=== PATIENT | male | born 1965 | race Caucasian/White ===

== ENCOUNTER → 2019-11-13 | Outpatient (CLI) | payer OTHER ==
--- NOTE | 2019-11-13 15:56 | US ---
EXAMINATION TYPE: US thyroid st tissue head/neck DATE OF EXAM: 11/13/2019 COMPARISON: NONE CLINICAL HISTORY: R22.1 localized swelling, mass and lump, neck. Pt states palpable lump right latera l neck extending to midline of neck/ Pt denies pain In area of pt's palpable midline/right lateral neck shows a solid, isoechoic area= 2.5 x 1.0 x 6.6 cm/ No blood flow withing ?lipoma IMPRESSION: I subtle slightly hypoechoic structure within the neck of the palpable abnormality may be a lipoma. R ecommend CT with contrast for additional evaluation.
== END | disposition home or self-care (01) ==
LOC: RADUSWWP 15:29
PROVIDERS: ATTEND Family Medicine
DX: R22.1 Localized swelling, mass and lump, neck (principal)
CPT/HCPCS: 76536

== ENCOUNTER → 2019-12-09 | Outpatient (CLI) | payer OTHER ==
--- NOTE | 2019-12-10 09:17 | CT ---
EXAMINATION TYPE: CT soft tissue neck w con DATE OF EXAM: 12/09/2019 COMPARISON: None HISTORY: Neck lump CT DLP: 570.3 mGycm CONTRAST: Patient injected with 100 mL of Isovue 300. TECHNIQUE: Axial images at 3 mm thick sections. Reconstructed images in the coronal plane and sagitt al plane are reviewed. FINDINGS: Limited CT sections are obtained the lung apices. The lung apices appear clear. CT neck: The torus tubarius and fossa of Rosenmuller are normal. 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 Para nasal sinuses and mastoid air cells are clear. Parotid glands appear normal and symmetrical. Submandibular glands, are normal. Parapharyngeal spac es are normal. No suspicious adenopathy is evident. The hypopharynx appears within normal limits. Vocal cord level appear symmetrical. Thyroid as visualized is normal. Osseous structures are normal. IMPRESSIONS: 1. Normal soft tissue neck.
== END | disposition home or self-care (01) ==
LOC: RADCTMAIN 16:54
PROVIDERS: ATTEND Family Medicine
DX: R22.1 Localized swelling, mass and lump, neck (principal)
CPT/HCPCS: 70491; Q9967

== ENCOUNTER 2021-03-08 08:44 | Inpatient (IN) | payer OTHER ==
[2021-03-08] MEDS ORDERED: NITROGLYCERIN SL TABS 0.4 MG TAB SUBLINGUAL STA (09:06)
[2021-03-08] MEDS ORDERED: ASPIRIN 81 MG PO STA (09:06)
--- NOTE | 2021-03-08 09:22 | ED ---
General Adult HPI - General Chief complaint: Chest Pain Stated complaint: chest pain Time Seen by Provider: 03/08/21 09:00 Source: patient, RN notes reviewed, old records reviewed Mode of arrival: wheelchair Limitations: no limitations - History of Present Illness Initial comments: This is a 55-year-old male who presents emergency Department complaining of chest pain. Patient states it started a little bit last night but today at 7:30 at work it got severe. Patient states is from the bottom of his chest bilaterally although we have to his neck. Patient states also is in his back. Patient denies any short of breath patient denies any diaphoretic episodes patient denies any nausea. Patient states his only risk factor is high blood pressure. Patient denies diabetes high cholesterol or family history. Patient denies smoking. Patient denies any recent fever chills or cough per patient denies abdominal pain. Patient denies any headache patient denies numbness or weakness. - Related Data Allergies Allergy/AdvReac Type Severity Reaction Status Date / Time No Known Allergies Allergy Verified 03/08/21 08:54 Review of Systems ROS Statement: Those systems with pertinent positive or pertinent negative responses have been documented in the HPI. ROS Other: All systems not noted in ROS Statement are negative. Past Medical History Past Medical History: Hypertension History of Any Multi-Drug Resistant Organisms: None Reported Past Surgical History: Tonsillectomy Past Psychological History: No Psychological Hx Reported Smoking Status: Never smoker Past Alcohol Use History: Rare Past Drug Use History: None Reported General Exam - General Exam Comments Initial Comments: GENERAL: Patient is well-developed and well-nourished. Patient is nontoxic and well-hydrated and is in mild distress. ENT: Neck is soft and supple. No significant lymphadenopathy is noted. Oropharynx is clear. Moist mucous membranes. Neck has full range of motion without eliciting any pain. There is no thyroid enlargement and no masses were felt. EYES: The sclera were anicteric and conjunctiva were pink and moist. Extraocular movements were intact and pupils were equal round and reactive to light. Eyelids were unremarkable. PULMONARY: Unlabored respirations. Good breath sounds bilaterally. No audible rales rhonchi or wheezing was noted. CARDIOVASCULAR: There is a regular rate and rhythm without any murmurs gallops or rubs. ABDOMEN: Soft and nontender with normal bowel sounds. SKIN: Skin is clear with no lesions or rashes and otherwise unremarkable. NEUROLOGIC: Patient is alert and oriented x3. Cranial nerves II through XII are grossly intact. Motor and sensory are also intact. Normal speech, volume and content. Symmetrical smile. Cerebellar exam grossly intact. MUSCULOSKELETAL: Normal extremities with adequate strength and full range of motion. No lower extremity swelling or edema. No calf tenderness. LYMPHATICS: No significant lymphadenopathy is noted PSYCHIATRIC: Normal psychiatric evaluation. Limitations: no limitations Course Vital Signs 03/08/21 08:48 Temperature 97.8 F Pulse Rate 100 Respiratory 18 Rate Blood Pressure 188/120 O2 Sat by Pulse 99 Oximetry Medical Decision Making - Medical Decision Making EKG shows normal sinus rhythm at 90 bpm MS interval 274 QRS is 90 QT interval 374 QTC is 479. Patient's EKG shows ST segment elevation in leads V2 through V6 as well as 1 and aVL per patient has preseptal changes in leads 3 and aVF. STEMI was called overhead immediately upon seeing the patient. Patient was given nitroglycerin and aspirin. Dr. Berrios was there to see the patient he ordered some metoprolol by mouth. Chest x-ray was done portably. Radiology did not think it was any acute mediastinal widening. Patient states the catheter tract. Critical Care Time Critical Care Time: Yes Total Critical Care Time: 35 Disposition Clinical Impression: ST elevation myocardial infarction (STEMI) Disposition: ADMITTED IP TO THIS [facility] Time of Disposition: 09:21
[2021-03-08] MEDS ORDERED: SODIUM CHLORIDE 0.9% 1,000 ML IV ONE ×2 (09:23)
--- NOTE | 2021-03-08 09:25 | XR ---
EXAMINATION TYPE: XR chest 1V portable DATE OF EXAM: 03/08/2021 CLINICAL HISTORY: Difficulty breathing progress study. TECHNIQUE: Single AP portable upright view of the chest is obtained. COMPARISON: CT neck December 09, 2019. FINDINGS: Chronic parenchymal changes and low lung volumes without suspicious focal airspace opacity , pleural effusion, or seen bilaterally. Cardiac silhouette size upper limits of normal with aneurysm al thoracic aorta redemonstrated. This is not significantly changed from CT neck images. Osseous stru ctures are intact. IMPRESSION: Chronic changes without acute pulmonary process.
--- NOTE | 2021-03-08 09:30 | P.CRDCN ---
History of Present Illness History of present illness: HISTORY OF PRESENTING ILLNESS This is a pleasant 55-year-old without significant past medical history who presents secondary to chest pain over the last day. He states he developed some last night however it eased up and then had more this morning and therefore presented to emergency department. He denies any similar episodes in the past. No history of coronary artery disease, no tobacco abuse, no illicit drugs occasional alcohol. EKG showed normal sinus rhythm, Q waves in V1 and V2 V3 with diffuse ST elevation the 2 through V6 in the lateral leads with reciprocal changes. He denies any hematochezia or melena. REVIEW OF SYSTEMS At the time of my exam: CONSTITUTIONAL: Denies fever or chills. CARDIOVASCULAR: Denies chest pain, shortness of breath, orthopnea, PND or palpitations. RESPIRATORY: Denies cough. GASTROINTESTINAL: Denies abdominal pain, diarrhea, constipation, nausea or vomiting. MUSCULOSKELETAL: Denies myalgias. NEUROLOGIC: Denies numbness, tingling or weakness. ENDOCRINE: Denies fatigue, weight change, polydipsia or polyurina. GENITOURINARY: Denies burning, hematuria or urgency with micturation. HEMATOLOGIC: Denies history of anemia or bleeding. PHYSICAL EXAMINATION Vital signs reviewed. CONSTITUTIONAL: Mild distress. HEENT: Head is normocephalic. Pupils are equal, round. Sclerae anicteric. Mucous membranes of the mouth are moist. No JVD. No carotid bruit. CHEST EXAMINATION: Lungs are clear to auscultation. No chest wall tenderness is noted on palpation or with deep breathing. HEART EXAMINATION: Regular rate and rhythm. S1, S2 heard. No murmurs, gallops or rub. ABDOMEN: Soft, nontender. Positive bowel sounds. EXTREMITIES: 2+ peripheral pulses, no lower extremity edema and no calf tenderness. NEUROLOGIC EXAMINATION: Patient is awake, alert and oriented x3. ASSESSMENT 1. Anteroseptal STEMI 2. Chest pain PLAN Discussed findings of STEMI and recommendations for emergent heart catheterization and patient is agreeable. Continue aspirin, heparin. Check 2-D echo. Further recommendations to follow. Past Medical History Past Medical History: Hypertension History of Any Multi-Drug Resistant Organisms: None Reported Past Surgical History: Tonsillectomy Past Psychological History: No Psychological Hx Reported Smoking Status: Never smoker Past Alcohol Use History: Rare Past Drug Use History: None Reported Medications and Allergies Allergies Allergy/AdvReac Type Severity Reaction Status Date / Time No Known Allergies Allergy Verified 03/08/21 08:54 Physical Exam Vitals: Vital Signs Temp Pulse Resp BP Pulse Ox 03/08/21 08:48 97.8 F 100 18 188/120 99 Intake and Output 03/07/21 03/08/21 03/08/21 22:59 06:59 14:59 Other: Weight 104.326 kg Results Intake and Output 03/07/21 03/08/21 03/08/21 22:59 06:59 14:59 Other: Weight 104.326 kg Patient Weight 03/09/21 06:59 Weight 104.326 kg
[2021-03-08] MEDS ORDERED: LIDOCAINE 1% INJ 10MG/ML (20 ML MDV) SQ ONE (09:33)
[2021-03-08] MEDS ORDERED: fentaNYL (PF) 50 MCG/ML 2 ML AMP IV ONE (09:33)
[2021-03-08] MEDS ORDERED: MIDAZOLAM 2 MG/2 ML VIAL IV ONE (09:33)
[2021-03-08] MEDS ORDERED: METOPROLOL TARTRATE 50 MG TAB PO STA (09:34)
[2021-03-08 09:35] LABS: Basophils % (A) 0 %; Eosinophils % (A) 0 %; HCT 47.1 % (39.0-53.0); HGB 15.7 gm/dL (13.0-17.5); INR 0.9 (<1.2); Lymphocytes # (A) 1.6 k/uL (1.0-4.8); Lymphocytes % (A) 15 %; MCH 29.5 pg (25.0-35.0); MCHC 33.4 g/dL (31.0-37.0); MCV 88.6 fL (80.0-100.0); Mean Platelet Volume 7.5; Monocytes # (A) 0.4 k/uL (0-1.0); Monocytes % (A) 3 %; Neutrophils # (A) 9.1 k/uL (1.3-7.7); Neutrophils % (A) 81 %; Platelet Count 295 k/uL (150-450); Prothrombin Time 9.5 sec (9.0-12.0); RBC 5.32 m/uL (4.30-5.90); RDW 13.1 % (11.5-15.5); WBC 11.2 k/uL (3.8-10.6)
[2021-03-08] MEDS ORDERED: VERAPAMIL SYRINGE (5 MG/10 ML) INTRAARTER ONE (09:35)
--- NOTE | 2021-03-08 09:35 | P.CRDCN ---
History of Present Illness History of present illness: HISTORY OF PRESENTING ILLNESS This is a pleasant 55-year-old male past medical history significant for hypertension. 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 We have been asked to see in consultation for STEMI. Patient seen and examined in the emergency department. Patient states he's been having bilateral anterior chest pain for the past 12 days. Yesterday specifically at work he started to have chest pain across his chest. Today at 7:30 AM his chest pain worsened and he decided to present to the emergency department for further evaluation. His chest pain radiates to his upper back and shoulders. It is exertional. Patient had associated diaphoresis. He denies any shortness of breath, nausea, vomiting, lightheadedness, dizziness. Cardiovascular exam he continues to have upper back and bilateral shoulder pain and upper abdominal pain. He denies any history of [place], coronary disease, stroke, diabetes. He denies smoking or alcohol use. EKG revealed ST elevation in anterior lateral leads with reciprocal changes in inferior leads. Chest x-ray revealed cardiac silhouette size upper limits of normal aneurysmal thoracic aorta, no significant change from prior CT. Patient hypertensive on arrival, BP 188/120, heart rate 100, oxygen saturations 99% on room air. REVIEW OF SYSTEMS At the time of my exam: CONSTITUTIONAL: Denies fever or chills. +diaphoresis CARDIOVASCULAR: +chest pain, Denies shortness of breath, orthopnea, PND or palpitations. RESPIRATORY: Denies cough. GASTROINTESTINAL:+ upper abdominal pain, Denies diarrhea, constipation, nausea or vomiting. MUSCULOSKELETAL: + upper shoulder and back pain NEUROLOGIC: Denies numbness, tingling, headacbe or weakness. ENDOCRINE: Denies fatigue, weight change, polydipsia or polyurina. GENITOURINARY: Denies burning, hematuria or urgency with micturation. HEMATOLOGIC: Denies history of anemia or bleeding. PHYSICAL EXAMINATION BP 188/120, heart rate 100, oxygen saturations 99% on room air. CONSTITUTIONAL: No apparent distress. HEENT: Head is normocephalic. Pupils are equal, round. Sclerae anicteric. Mucous membranes of the mouth are moist. No JVD. No carotid bruit. CHEST EXAMINATION: Lungs are clear to auscultation. No chest wall tenderness is noted on palpation or with deep breathing. HEART EXAMINATION: Regular rate and rhythm. S1, S2 heard. ABDOMEN: Soft, nontender. Positive bowel sounds. EXTREMITIES: 2+ peripheral pulses, no lower extremity edema and no calf tenderness. NEUROLOGIC EXAMINATION: Patient is awake, alert and oriented x3. ASSESSMENT STEMI Hypertension PLAN -We will proceed with cardiac catheterization. I have discussed the risks, benefits and alternative therapies for the above-mentioned procedure and for both sedation/analgesia as well as necessary blood product administration, if indicated, as they pertain to this patient. The patient has indicated understanding and acceptance of the risks and procedures discussed. Questions have been answered appropriately and he is agreeable to move forward with the above-stated procedure. -Further recommendations based on clinical course Nurse Practitioner note has been reviewed, I agree with a documented findings and plan of care. Patient was seen and examined. Past Medical History Past Medical History: Hypertension History of Any Multi-Drug Resistant Organisms: None Reported Past Surgical History: Tonsillectomy Past Psychological History: No Psychological Hx Reported Smoking Status: Never smoker Past Alcohol Use History: Rare Past Drug Use History: None Reported Medications and Allergies Allergies Allergy/AdvReac Type Severity Reaction Status Date / Time No Known Allergies Allergy Verified 03/08/21 08:54 Physical Exam Vitals: Vital Signs Temp Pulse Resp BP Pulse Ox 03/08/21 08:48 97.8 F 100 18 188/120 99 Intake and Output 03/07/21 03/08/21 03/08/21 22:59 06:59 14:59 Other: Weight 104.326 kg Results Intake and Output 03/07/21 03/08/21 03/08/21 22:59 06:59 14:59 Other: Weight 104.326 kg Patient Weight 03/09/21 06:59 Weight 104.326 kg
[2021-03-08] MEDS: HEPARIN SODIUM 1,000 UN/ML (10ML VL) IV ONE ×3 (09:42→10:09)
[2021-03-08 09:43] LABS: ALT 30 U/L (4-49); AST 67 U/L (17-59); African American GFR (CKD) >90 (>60 ml/min/1.73 sqM); Albumin 4.6 g/dL (3.5-5.0); Alkaline Phosphatase 83 U/L (38-126); Anion Gap 9 mmol/L; Blood Urea Nitrogen 17 mg/dL (9-20); Calcium 9.7 mg/dL (8.4-10.2); Carbon Dioxide 26 mmol/L (22-30); Chloride 103 mmol/L (98-107); Glucose 157 mg/dL (74-99); Non-African American GFR(CKD) >90 (>60 ml/min/1.73 sqM); Sodium 138 mmol/L (137-145); Total Protein 7.3 g/dL (6.3-8.2)
[2021-03-08] MEDS ORDERED: PRASUGREL 10 MG TAB ONE (09:46)
[2021-03-08] MEDS ORDERED: PRASUGREL 10 MG TAB PO ONE (09:49)
[2021-03-08] MEDS ORDERED: IOPAMIDOL-370 125ML BTL INJ ONE (09:52)
[2021-03-08] MEDS: niCARdipine Syringe (1,000 mcg/10 mL) INTRACORON ONE ×2 (10:04→10:11)
[2021-03-08] MEDS ORDERED: NITROGLYCERIN-D5W PMX 50 MG in DEXTROSE/WATER 1 250ML.BAG IV ONE (10:05)
[2021-03-08] MEDS ORDERED: hydrALAZINE HCL 20 MG/ML 1 ML VIAL IV ONE (10:09)
[2021-03-08] MEDS ORDERED: IOPAMIDOL-370 100ML BTL INJ ONE (10:24)
[2021-03-08 10:55] LABS: Glucose,Whole Blood 179 mg/dL (75-99)
[2021-03-08] MEDS ORDERED: ATROPINE SULFATE 0.1 MG/ML 10ML SYRINGE IV PRN (11:00)
[2021-03-08] MEDS ORDERED: MAG HYDROX/AL HYDROX/SIMETH 30 ML CUP PO PRN (11:00)
[2021-03-08] MEDS ORDERED: RX INFO: IV CONTRAST WAS GIVEN 1 EACH MISC MISCELLANE PRN (11:00)
[2021-03-08] MEDS: SODIUM CHLORIDE 0.9% 1,000 ML IV SCH (11:36)
--- NOTE | 2021-03-08 12:43 | ECHOF ---
Referral Reason:post STEMI MEASUREMENTS -------- HEIGHT: 180.3 cm WEIGHT: 104.3 kg BP: 188/120 RVIDd: 3.5 cm (< 3.3) IVSd: 1.4 cm (0.6 - 1.1) LVIDd: 5.0 cm (3.9 - 5.3) LVPWd: 1.2 cm (0.6 - 1.1) IVSs: 2.1 cm LVIDs: 3.5 cm LVPWs: 1.6 cm LA Diam: 3.2 cm (2.7 - 3.8) LAESV Index (A-L): 27.44 ml/m Ao Diam: 4.2 cm (2.0 - 3.7) AV Cusp: 2.3 cm (1.5 - 2.6) MV E Ky: 0.83 m/s MV DecT: 139 ms MV A Ky: 0.70 m/s MV E/A Ratio: 1.18 AV maxP.37 mmHg AV meanP.55 mmHg AR PHT: 490 ms RAP: 5.00 mmHg RVSP: 39.61 mmHg FINDINGS -------- Sinus rhythm. This was a technically adequate study. The left ventricular size is normal. There is moderate concentric left ventricular hypertrophy. O verall left ventricular systolic function is mild-moderately impaired with, an EF between 40 - 45 %. Apical anterior LV wall motion is hypokinetic. Apical lateral LV wall motion is hypokinetic. Apical inferior LV wall motion is hypokinetic. Apical septum LV wall motion is hypokinetic. The right ventricle is mildly enlarged. Normal LA size by volume 22+/-6 ml/m2. The right atrium is normal in size. Interatrial and interventricular septum intact. The aortic valve is bicuspid. There is mild aortic regurgitation. Peak/mean gradient across the A ortic Valve is 8.37mmHg / 4.55mmHg. The mitral valve is normal. Mild tricuspid regurgitation present. There is mild pulmonary hypertension. The right ventricular systolic pressure, as measured by Doppler, is 39.61mmHg. There is no pulmonic regurgitation present. The aortic root is dilated measuring 4.2cm. Normal inferior vena cava with normal inspiratory collapse consistent with estimated right atrial pre ssure of 5 mmHg. There is no pericardial effusion. CONCLUSIONS -------- 1. The left ventricular size is normal. 2. There is moderate concentric left ventricular hypertrophy. 3. Overall left ventricular systolic function is mild-moderately impaired with, an EF between 40 - 45 %. 4. Apical anterior LV wall motion is hypokinetic. 5. Apical lateral LV wall motion is hypokinetic. 6. Apical inferior LV wall motion is hypokinetic. 7. Apical septum LV wall motion is hypokinetic. 8. The right ventricle is mildly enlarged. 9. The aortic valve is bicuspid. 10. There is mild aortic regurgitation. 11. Peak/mean gradient across the Aortic Valve is 8.37mmHg / 4.55mmHg. 12. Mild tricuspid regurgitation present. 13. There is mild pulmonary hypertension. 14. The right ventricular systolic pressure, as measured by Doppler, is 39.61mmHg. 15. The aortic root is dilated measuring 4.2cm. 16. There is no pericardial effusion. COMPUTER NUMERICAL CONTROL PROGRAMMER: Lisa Espinoza RDCS
[2021-03-08] MEDS: carvediloL 12.5 MG TAB PO SCH (17:49)
--- NOTE | 2021-03-08 18:11 | P.PRCINT ---
Percutaneous Coronary Int. - Percutaneous Coronary Intervention Percutaneous Coronary Intervention: PROCEDURES PERFORMED: Left heart catheterization, bilateral coronary angiography, PCI mid LAD with a 3.5 x 15mm Xience JAKE, post dilated proximally with a 4.5 NC balloon, IVUS, intracoronary nitroglycerin, Angioseal INDICATION: Anterolateral STEMI HISTORY: Patient is a pleasant 55 year old male with history of hypertension who had run out of his BP meds who presented with off and on chest pain over the last day and found to have STEMI with anterolateral ST elevations. CONSENT:I have discussed the risks, benefits and alternative therapies for the above-mentioned procedure and for both sedation/analgesia as well as necessary blood product administration, if indicated, as they pertain to this patient. The patient has indicated understanding and acceptance of the risks and procedures discussed. PROCEDURE: After the risks, benefits and alternatives of the above mentioned procedure explained in detail with the patient, informed consent was obtained. Patient was taken to the catheterization lab and prepped and draped in usual fashion. 1% lidocaine was used to anesthetize the right radial artery. A 6- [place] sheath was placed in the right radial artery using modified Seldinger technique. There was severe tortuosity of the innominate with inability to easily pass the 0.035 wire down into the ascending aorta and therefore radial approach was abandonded. A 6Fr sheath was placed in the right femoral artery using micropuncture technique. Left coronary angiography was performed with a 6- [place] CLS 3.5 guide catheter and right coronary angiography was performed with a 5-[place] JR5 catheter in various views. A 5-[place] FR5 catheter was inserted into the left ventricle and pressure measurements were obtained. The decision was made to perform PCI of the LAD. Heparin was given for an ACT greater than 250. The 6Fr CLS 3.5 guide was used to engage the left main. A 0.014 wire was easily passed into the distal LAD. Predilation was performed with a 2.5 x 12mm balloon. Next a 3.5 x 15mm Xience JAKE was placed to the mid LAD. There was a more proximal LAD 40-50% stenosis felt best treated medically. The proximal portion of the stent was post dilated with a 4.5 x 8mm NC balloon. Intracoronary nicardipine and nitro were given. Pre intervention there was 100% mid LAD stenosis and [place] 0 flow and post intervention there was <10% stenosis and [place] 3 flow. IVUS was performed which showed good stent apposition and appropriate sized stent proximally and distally without any dissection. The wire was removed and final angiograms were performed. A right femoral angiogram was performed which showed anatomy suitable for closure and therefore a 6Fr Angioseal was placed with hemostasis achieved. The right radial sheath was removed and a TR band was placed with hemostasis achieved. The patient tolerated the procedure well. Patient was transported back to the post catheterization holding area in stable condition. Conscious Sedation: Patient was monitored under the direct supervision of vision of myself for conscious sedation using Versed and fentanyl for a total duration of [] minutes HEMODYNAMICS: Ao: 92/56 LV: 89/3, LVEDP 19 SELECTIVE CORONARY ARTERIOGRAPHY: LEFT MAIN: The left main is a large caliber vessel which bifurcates into the LAD and circumflex. There is no significant stenosis. LEFT ANTERIOR DESCENDING CORONARY ARTERY: LAD is a large caliber vessel which wraps around to the apex. There is a proximal LAD 40-50% stenosis followed by a mid LAD 100% stenosis and otherwise mild luminal irregularities. LEFT CIRCUMFLEX CORONARY ARTERY: Left circumflex is a moderate caliber vessel without significant stenosis. RIGHT CORONARY ARTERY: The right coronary artery is a large caliber vessel which gives off a PDA and PLV branch and is the dominant vessel. There is no significant stenosis. FINAL IMPRESSION: 1. Single vessel CAD as described above with 40-50% proximal LAD and 100% mid LAD stenosis. 2. Anterolateral STEMI 3. Elevated left sided filling pressures PLAN: 1. Aggressive risk factor modification per most recent ACC/AHA guidelines. 2. Continue dual antiplatelets for 12 months. Would treat proximal LAD medically however if develops recurrent angina, may consider functional assessment of LAD lesion. 3. Follow-up in the office in 1-2 weeks.
--- NOTE | 2021-03-08 18:37 | P.HPIM ---
History of Present Illness H&P Date: 03/08/21 Chief Complaint: Chest pain/ST elevated myocardial infarction 55-year-old male with past significant medical history of hypertension is admitted to the hospital for Anterospetal STEMI. Patient presented to the emergency department with chest discomfort located over his midsternal area, with radiation to his neck. He states he's been having chest discomfort on the anterior portion of his chest for the last 1-2 days, today around 7:30 AM the chest discomfort worsened, which he decided to go to the emergency department. Upon arrival to the emergency department 12-lead EKG was performed, revealing ST segment elevations in leads anterior lateral leads with reciprocal changes in inferior leads. STEMI alert was activated, patient was transferred to the Senior Asp Net Developer for PCI intervention. Patient had stent placement to the mid LAD. See percutaneous coronary intervention dictation from Dr. Aguilera. 03/08/2021 Patient seen and examined at bedside. Patient resting comfortably in chair. Patient denies fever, chills, chest pain, shortness of breath, palpitations, abdominal pain, nausea or vomiting at this time. He states he is chest pain- free with no associated symptoms. Patient is status post intervention of stent placement to the mid LAD. Patient is in no acute signs of distress. Patient is hemodynamically stable. Review of Systems Constitutional: Reports as per HPI Ears, nose, mouth and throat: Reports as per HPI Cardiovascular: Reports as per HPI Respiratory: Reports as per HPI Gastrointestinal: Reports as per HPI Genitourinary: Reports as per HPI Musculoskeletal: Reports as per HPI Integumentary: Reports as per HPI Neurological: Reports as per HPI Psychiatric: Reports as per HPI Endocrine: Reports as per HPI, Reports flushing Allergic/Immunologic: Reports as per HPI Past Medical History Past Medical History: Chest Pain / Angina, Hypertension, Myocardial Infarction ([place]) Additional Past Medical History / Comment(s): Chest pain 03/07/21 Last Myocardial Infarction Date:: 03/08/2021 History of Any Multi-Drug Resistant Organisms: None Reported Past Surgical History: Heart Catheterization With Stent, Tonsillectomy Additional Past Surgical History / Comment(s): x1 Xience stent to mid LAD Past Anesthesia/Blood Transfusion Reactions: No Reported Reaction Date of Last Stent Placement:: 03/08/2021 Past Psychological History: No Psychological Hx Reported Smoking Status: Former smoker Past Alcohol Use History: Rare Past Drug Use History: None Reported - Past Family History Father Family Medical History: Myocardial Infarction ([place]) Additional Family Medical History / Comment(s): [place] w/ stents Mother Family Medical History: Cancer Additional Family Medical History / Comment(s): breast CA Medications and Allergies Home Medications and Allergies Comment(s): Medications and ALLERGIES reviewed Home Medications Medication Instructions Recorded Confirmed Type No Known Home Medications 03/08/21 03/08/21 History Allergies Allergy/AdvReac Type Severity Reaction Status Date / Time No Known Allergies Allergy Verified 03/08/21 09:28 Physical Exam Vitals: Vital Signs Temp Pulse Pulse Resp BP Pulse Ox 03/08/21 18:00 95 25 H 133/84 95 03/08/21 17:00 80 20 134/84 93 L 03/08/21 16:00 98 17 138/89 96 03/08/21 15:00 84 18 139/83 96 03/08/21 14:30 80 125/85 96 03/08/21 14:00 89 12 119/81 94 L 03/08/21 13:30 67 19 130/81 93 L 03/08/21 13:00 84 20 129/85 95 03/08/21 12:30 84 135/86 97 03/08/21 12:15 82 97 03/08/21 12:00 84 20 130/86 97 03/08/21 11:45 86 124/78 96 03/08/21 11:30 80 130/83 97 03/08/21 11:15 84 131/53 97 03/08/21 11:00 97.8 F 71 18 118/77 95 03/08/21 09:15 18 178/102 03/08/21 09:00 97 03/08/21 08:48 97.8 F 100 18 188/120 99 Intake and Output 03/08/21 03/08/21 03/08/21 06:59 14:59 22:59 Intake Total 505 300 Output Total 100 600 Balance 405 -300 Intake: IV 505 300 Sodium Chloride 0.9% 1, 300 300 000 ml @ 75 mls/hr IV . [id number] [facility] Rx#:[id number] Output: Urine 100 600 Other: # Bowel Movements 1 Weight 107.7 kg - Constitutional General appearance: cooperative - EENT Eyes: EOMI, PERRLA, normal appearance ENT: normal oropharynx Ears: bilateral: normal - Neck Neck: normal ROM Carotids: bilateral: upstroke normal Thyroid: bilateral: normal size - Respiratory Respiratory: bilateral: CTA (Anterior-posterior) - Cardiovascular Normal sinus rhythm Heart rate: 74 Rhythm: regular Heart sounds: normal: S1, S2 radial pulse Peripheral Pulses: bilateral: Normal dorsalis pedis Peripheral Pulses: bilateral: Normal - Gastrointestinal General gastrointestinal: normal bowel sounds - Integumentary Integumentary: normal turgor - Neurologic Neurologic: CNII-XII intact - Musculoskeletal Musculoskeletal: gait normal - Psychiatric Psychiatric: A&O x's 3, appropriate affect, intact judgment & insight Results CBC & Chem 7: 03/08/21 09:13 03/08/21 09:13 Labs: Abnormal Lab Results - Last 24 Hours (Table) 03/08/21 03/08/21 03/08/21 Range/Units 09:13 09:13 09:13 WBC 11.2 H (3.8-10.6) k/uL Neutrophils # 9.1 H (1.3-7.7) k/uL Glucose 157 H (74-99) mg/dL POC Glucose (mg/dL) (75-99) mg/dL AST 67 H (17-59) U/L Troponin I 1.760 H* (0.000-0.034) ng/mL 03/08/21 Range/Units 10:54 WBC (3.8-10.6) k/uL Neutrophils # (1.3-7.7) k/uL Glucose (74-99) mg/dL POC Glucose (mg/dL) 179 H (75-99) mg/dL AST (17-59) U/L Troponin I (0.000-0.034) ng/mL Comments: Percutaneous coronary intervention reviewed Chest x-ray: report reviewed Thrombosis Risk Factor Assmnt - Choose All That Apply Any of the Below Risk Factors Present?: Yes Each Factor Represents 1 point: Acute [place], Age 41-60 years Other Risk Factors: No Other congenital or acquired thrombophilia - If yes, enter type in comment: No Thrombosis Risk Factor Assessment Total Risk Factor Score: 2 Thrombosis Risk Factor Assessment Level: Low Risk Assessment and Plan Assessment: Chest pain Anteroseptal STEMI Hypertension History of tonsillectomy Obesity with a BMI of 33.1 Full code Plan: Anteroseptal STEMI, post percutaneous [place] intervention, stent noted to the LAD, continue cardiac medications initiated by cardiology Hypertension Continue to monitor vital signs and diagnostic testing Continue medical management Further recommendations to come based on patient's clinical condition Time with Patient: Greater than 30
[2021-03-09] MEDS: SODIUM CHLORIDE 0.9% 1,000 ML IV SCH
[2021-03-09 04:34] LABS: Basophils % (A) 0 %; Eosinophils # (A) 0.1 k/uL (0-0.7); Eosinophils % (A) 0 %; HCT 41.2 % (39.0-53.0); HGB 13.9 gm/dL (13.0-17.5); Lymphocytes # (A) 2.1 k/uL (1.0-4.8); Lymphocytes % (A) 18 %; MCH 29.2 pg (25.0-35.0); MCHC 33.6 g/dL (31.0-37.0); MCV 86.7 fL (80.0-100.0); Mean Platelet Volume 7.6; Monocytes # (A) 0.7 k/uL (0-1.0); Monocytes % (A) 6 %; Neutrophils # (A) 8.8 k/uL (1.3-7.7); Neutrophils % (A) 75 %; Platelet Count 265 k/uL (150-450); RBC 4.75 m/uL (4.30-5.90); RDW 13.7 % (11.5-15.5); WBC 11.8 k/uL (3.8-10.6)
[2021-03-09 04:47] LABS: African American GFR (CKD) >90 (>60 ml/min/1.73 sqM); Anion Gap 6 mmol/L; Blood Urea Nitrogen 21 mg/dL (9-20); Calcium 8.6 mg/dL (8.4-10.2); Carbon Dioxide 25 mmol/L (22-30); Chloride 104 mmol/L (98-107); Glucose 120 mg/dL (74-99); Non-African American GFR(CKD) >90 (>60 ml/min/1.73 sqM); Potassium 3.7 mmol/L (3.5-5.1); Sodium 135 mmol/L (137-145)
[2021-03-09] MEDS ORDERED: Potassium Replacement Protocol 1 EACH MISC MISCELLANE PRN (05:07)
[2021-03-09] MEDS ORDERED: POTASSIUM CHLORIDE ER 20 MEQ TAB.ER PO SCH (06:00)
[2021-03-09] MEDS: carvediloL 12.5 MG TAB PO SCH ×2 (06:41→18:51)
[2021-03-09] MEDS: ATORVASTATIN 80 MG TAB PO SCH (07:57)
[2021-03-09] MEDS: PRASUGREL 10 MG TAB PO SCH (07:57)
[2021-03-09] MEDS: ASPIRIN 81 MG PO SCH (07:58)
[2021-03-09] MEDS: SPIRONOLACTONE 25 MG TAB PO SCH (10:36)
--- NOTE | 2021-03-09 11:01 | P.PN ---
Subjective This is a pleasant 55-year-old male past medical history significant for hypertension. Patient does not follow with a director of corporate marketing. We have been asked to see in consultation for STEMI. Patient presented to the emergency department on 03/08/21 with complaints of chest pain. EKG showed normal sinus rhythm, Q waves in V1 and V2 V3 with diffuse ST elevation the 2 through V6 in the lateral leads with reciprocal changes. Troponin 1.7. Patient underwent cardiac catheterization with Dr. Aguilera on 03/08/21, Single vessel CAD with 40-50% proximal LAD and 100% mid LAD stenosis, Elevated left sided filling pressures. Patient underwent successful stenting mid LAD. Patient seen and examined at bedside, no acute distress. He denies any chest pain or shortness of breath. Echocardiogram revealed an EF of 4045% apical inferior wall hypokinetic, mild aortic regurgitation, mild tricuspid regurgitation, mild pulmonary hypertension. Laboratory data reviewed WBC 11.8, hemoglobin 13.9, plates to 65, sodium 135, potassium 3.7, BUN 21, serum creatin ine 0.6. Patient is currently maintained on aspirin 81 mg daily, atorvastatin 80 mg daily, carvedilol 5 mg twice a day, Effient 10 mg daily. PHYSICAL EXAMINATION Blood pressure 106/70, heart rate 74, afebrile, maintaining oxygen saturations on room air. CONSTITUTIONAL: No apparent distress. HEENT: Head is normocephalic.Neck Supple. No JVD CHEST EXAMINATION: Lungs are clear to auscultation. No chest wall tenderness is noted on palpation or with deep breathing. HEART EXAMINATION: Regular rate and rhythm. S1, S2 heard. ABDOMEN: Soft, nontender. Positive bowel sounds. EXTREMITIES: 2+ peripheral pulses, no lower extremity edema and no calf tenderness. NEUROLOGIC EXAMINATION: Patient is awake, alert and oriented x3. SKIN: Right radial cath, site, clean, dry, no hematoma, 2+ pulses ASSESSMENT Anterolateral STEMI s/p PCI mid LAD on 03/08/21 Hypertension Ischemic cardiomyopathy EF 40-45% PLAN -Start losartan 25mg daily and spironolactone 25mg daily -Continue dual antiplatelet therapy with aspirin and Effient -Continue carvedilol, and will increase as tolerated -From a cardiology perspective, patient is stable to be transferred to 3S cardiac stepdown unit. -Further recommendations based on clinical course Nurse Practitioner note has been reviewed, I agree with a documented findings and plan of care. Patient was seen and examined. Objective - Vital Signs Vital signs: Vital Signs Temp 98.7 F 03/09/21 08:00 Pulse 78 03/09/21 09:00 Resp 13 03/09/21 09:00 BP 114/73 03/09/21 09:00 Pulse Ox 93 L 03/09/21 09:00 Intake & Output 03/08/21 03/09/21 03/09/21 18:59 06:59 18:59 Intake Total 805 825 250 Output Total 700 0 0 Balance 105 825 250 Weight 107.7 kg Intake: IV 805 825 Sodium Chloride 0.9% 1, 600 825 000 ml @ 75 mls/hr IV . [id number] [facility] Rx#:[id number] Oral 250 Output: Urine 700 0 0 Other: Voiding Method Toilet Toilet Urinal Urinal # Voids 1 1 1 # Bowel Movements 1 1 - Labs CBC & Chem 7: 03/09/21 02:58 03/09/21 02:58 Labs: Abnormal Lab Results - Last 24 Hours (Table) 03/08/21 03/08/21 03/09/21 Range/Units 09:13 10:54 02:58 WBC 11.8 H (3.8-10.6) k/uL Neutrophils # 8.8 H (1.3-7.7) k/uL Sodium (137-145) mmol/L BUN (9-20) mg/dL Creatinine (0.66-1.25) mg/dL Glucose (74-99) mg/dL POC Glucose (mg/dL) 179 H (75-99) mg/dL Troponin I 1.760 H* (0.000-0.034) ng/mL 03/09/21 Range/Units 02:58 WBC (3.8-10.6) k/uL Neutrophils # (1.3-7.7) k/uL Sodium 135 L (137-145) mmol/L BUN 21 H (9-20) mg/dL Creatinine 0.61 L (0.66-1.25) mg/dL Glucose 120 H (74-99) mg/dL POC Glucose (mg/dL) (75-99) mg/dL Troponin I (0.000-0.034) ng/mL
[2021-03-09 13:11] VITALS: BMI 33.1
[2021-03-09] MEDS ORDERED: LOSARTAN 25 MG TAB PO SCH (17:00)
--- NOTE | 2021-03-09 18:49 | P.PN ---
Subjective Progress Note Date: 03/09/21 Principal diagnosis: Chest pain/ST elevated myocardial infarction 55-year-old male with past significant medical history of hypertension is admitted to the hospital for Anterospetal STEMI. Patient presented to the emergency department with chest discomfort located over his midsternal area, with radiation to his neck. He states he's been having chest discomfort on the anterior portion of his chest for the last 1-2 days, today around 7:30 AM the chest discomfort worsened, which he decided to go to the emergency department. Upon arrival to the emergency department 12-lead EKG was performed, revealing ST segment elevations in leads anterior lateral leads with reciprocal changes in inferior leads. STEMI alert was activated, patient was transferred to the Director Of Corporate Sales for PCI intervention. Patient had stent placement to the mid LAD. See percutaneous coronary intervention dictation from Dr. Aguilera. 03/08/2021 Patient seen and examined at bedside. Patient resting comfortably in chair. Patient denies fever, chills, chest pain, shortness of breath, palpitations, abdominal pain, nausea or vomiting at this time. He states he is chest pain- free with no associated symptoms. Patient is status post intervention of stent placement to the mid LAD. Patient is in no acute signs of distress. Patient is hemodynamically stable. 03/09/2021 Patient seen and examined at bedside. Patient resting comfortably in chair. Patient denies fever, chills, chest pain, shortness of breath, palpitations abdominal pain nausea or vomiting at this time. Patient denies any complaints at this time. Review diagnostic labs mild leukocytosis and white count 11.8, sodium 135, glucose of 120, hemoglobin A1c ordered prediabetes 6.3. Patient hemodynamically stable, no dysrhythmias noted after continuous coronary intervention. Awaiting on cardiology's recommendations for treatment plan post cardiac stenting for Anterospetal STEMI. Objective - Vital Signs Vital signs: Vital Signs Temp 98.5 F 03/09/21 12:00 Pulse 81 03/09/21 12:00 Resp 11 L 03/09/21 14:00 BP 107/74 03/09/21 12:00 Pulse Ox 96 03/09/21 12:00 Intake & Output 03/08/21 03/09/21 03/09/21 18:59 06:59 18:59 Intake Total 805 825 760 Output Total 700 0 300 Balance 105 825 460 Weight 107.7 kg 107.7 kg Intake: IV 805 825 20 Invasive Line 1 10 Invasive Line 2 10 Sodium Chloride 0.9% 1, 600 825 000 ml @ 75 mls/hr IV . [id number] [facility] Rx#:[id number] Oral 740 Output: Urine 700 0 300 Other: Voiding Method Toilet Toilet Urinal Urinal # Voids 1 1 1 # Bowel Movements 1 1 - Constitutional General appearance: Present: cooperative, mild distress - EENT Eyes: Present: EOMI, PERRLA, normal appearance Ears: bilateral: normal - Neck Neck: Present: normal ROM Carotids: bilateral: upstroke normal Thyroid: bilateral: normal size - Respiratory Respiratory: bilateral: CTA (Anterior and posterior lung jiménez) - Cardiovascular Details: Normal sinus rhythm Heart rate: 74 Rhythm: regular Heart sounds: normal: S1, S2 - Peripheral pulses radial pulse Peripheral Pulses: bilateral: Normal dorsalis pedis Peripheral Pulses: bilateral: Normal - Gastrointestinal General gastrointestinal: Present: normal bowel sounds - Integumentary Integumentary: Present: normal - Neurologic Neurologic: Present: CNII-XII intact - Musculoskeletal Musculoskeletal: Present: gait normal - Psychiatric Psychiatric: Present: A&O x's 3, appropriate affect, intact judgment & insight - Allied health notes Allied health notes reviewed: nursing - Labs CBC & Chem 7: 03/09/21 02:58 03/09/21 02:58 Labs: Abnormal Lab Results - Last 24 Hours (Table) 03/08/21 03/09/21 03/09/21 Range/Units 09:13 02:58 02:58 WBC 11.8 H (3.8-10.6) k/uL Neutrophils # 8.8 H (1.3-7.7) k/uL Sodium 135 L (137-145) mmol/L BUN 21 H (9-20) mg/dL Creatinine 0.61 L (0.66-1.25) mg/dL Glucose 120 H (74-99) mg/dL Hemoglobin A1c 6.3 H (4.0-6.0) % - Imaging and Cardiology Chest x-ray: report reviewed Assessment and Plan Assessment: Chest pain Anteroseptal STEMI Hypertension History of tonsillectomy Obesity with a BMI of 33.1 Full code Plan: Anteroseptal STEMI, post percutaneous coronary intervention, stent noted to the LAD, continue cardiac medications initiated by cardiology Hypertension Continue to monitor vital signs and diagnostic testing Continue medical management Further recommendations to come based on patient's clinical condition Hopeful discharge within 24-48 hours Time with Patient: Greater than 30
[2021-03-10] MEDS: carvediloL 12.5 MG TAB PO SCH ×2 (06:21→17:46)
[2021-03-10 07:53] LABS: Basophils # (A) 0.1 k/uL (0-0.2); Basophils % (A) 1 %; Eosinophils # (A) 0.1 k/uL (0-0.7); Eosinophils % (A) 1 %; HCT 39.6 % (39.0-53.0); HGB 13.1 gm/dL (13.0-17.5); Lymphocytes % (A) 22 %; MCHC 33.2 g/dL (31.0-37.0); MCV 90.3 fL (80.0-100.0); Mean Platelet Volume 7.8; Monocytes # (A) 0.5 k/uL (0-1.0); Monocytes % (A) 6 %; Neutrophils # (A) 6.4 k/uL (1.3-7.7); Neutrophils % (A) 70 %; Platelet Count 211 k/uL (150-450); RBC 4.39 m/uL (4.30-5.90); RDW 13.3 % (11.5-15.5); WBC 9.2 k/uL (3.8-10.6)
[2021-03-10 09:06] LABS: African American GFR (CKD) >90 (>60 ml/min/1.73 sqM); Anion Gap 5 mmol/L; Blood Urea Nitrogen 28 mg/dL (9-20); Calcium 8.4 mg/dL (8.4-10.2); Carbon Dioxide 26 mmol/L (22-30); Chloride 107 mmol/L (98-107); Glucose 113 mg/dL (74-99); Non-African American GFR(CKD) >90 (>60 ml/min/1.73 sqM); Potassium 3.9 mmol/L (3.5-5.1); Sodium 138 mmol/L (137-145)
[2021-03-10] MEDS: SPIRONOLACTONE 25 MG TAB PO SCH (10:36)
[2021-03-10] MEDS: PRASUGREL 10 MG TAB PO SCH (10:36)
[2021-03-10] MEDS: ASPIRIN 81 MG PO SCH (10:36)
[2021-03-10] MEDS: ATORVASTATIN 80 MG TAB PO SCH (10:36)
--- NOTE | 2021-03-10 13:27 | P.PN ---
Subjective This is a pleasant 55-year-old male past medical history significant for hypertension. 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 We have been asked to see in consultation for STEMI. Patient presented to the emergency department on 03/08/21 with complaints of chest pain. EKG showed normal sinus rhythm, Q waves in V1 and V2 V3 with diffuse ST elevation the 2 through V6 in the lateral leads with reciprocal changes. Troponin 1.7. Patient underwent cardiac catheterization with Dr. Aguilera on 03/08/21, Single vessel CAD with 40-50% proximal LAD and 100% mid LAD stenosis, Elevated left sided filling pressures. Patient underwent successful stenting mid LAD. Echocardiogram revealed an EF of 4045% apical inferior wall hypokinetic, mild aortic regurgitation, mild tricuspid regurgitation, mild pulmonary hypertension. Patient seen and examined at bedside, no acute distress. He denies any chest pain or shortness of breath. He is overall feeling well. His BP is slightly low. Laboratory data reviewed WBC 9.2, hemoglobin 13.1, platelets 211, sodium 138, potassium 3.9, BUN 28, serum creatinine 0.6 Patient is currently maintained on aspirin 81 mg daily, atorvastatin 80 mg daily, carvedilol 12.5 mg twice a day, Effient 10 mg daily, losartan 25 mg daily, spironolactone 25 mg daily PHYSICAL EXAMINATION CONSTITUTIONAL: No apparent distress. HEENT: Head is normocephalic.Neck Supple. No JVD CHEST EXAMINATION: Lungs are clear to auscultation. No chest wall tenderness is noted on palpation or with deep breathing. HEART EXAMINATION: Regular rate and rhythm. S1, S2 heard. ABDOMEN: Soft, nontender. Positive bowel sounds. EXTREMITIES: 2+ peripheral pulses, no lower extremity edema and no calf tenderness. NEUROLOGIC EXAMINATION: Patient is awake, alert and oriented x3. SKIN: Right radial cath, site, clean, dry, no hematoma, 2+ pulses ASSESSMENT Anterolateral STEMI s/p PCI mid LAD on 03/08/21 Hypertension Ischemic cardiomyopathy EF 40-45% PLAN -Decrease losartan to 12.5mg daily -Continue spironolactone 25mg daily -Continue dual antiplatelet therapy with aspirin and Effient. This is covered by patient's insurance with $10 copay/month -Continue carvedilol at 12.5mg BID -From a cardiology perspective, patient is stable to be discharged later today. Follow up with Dr. Berrios in the office in 1 week. Nurse Practitioner note has been reviewed, I agree with a documented findings and plan of care. Patient was seen and examined. Objective - Vital Signs Vital signs: Vital Signs Temp 98.6 F 03/10/21 07:45 Pulse 69 03/10/21 07:45 Resp 18 03/10/21 07:45 BP 93/57 03/10/21 07:45 Pulse Ox 97 03/10/21 07:45 Intake & Output 03/09/21 03/10/21 03/10/21 18:59 06:59 18:59 Intake Total 780 Output Total 300 300 Balance 480 -300 Weight 107.7 kg 105.7 kg Intake: IV 40 Invasive Line 1 20 Invasive Line 2 20 Oral 740 Output: Urine 300 300 Other: Voiding Method Toilet Toilet Urinal Urinal # Voids 1 1 - Labs CBC & Chem 7: 03/10/21 06:32 03/10/21 06:32 Labs: Abnormal Lab Results - Last 24 Hours (Table) 03/08/21 03/10/21 Range/Units 09:13 06:32 BUN 28 H (9-20) mg/dL Glucose 113 H (74-99) mg/dL Hemoglobin A1c 6.3 H (4.0-6.0) %
[2021-03-10] MEDS ORDERED: LOSARTAN 25 MG TAB PO SCH (17:00)
[2021-03-10 17:35] VITALS: BP 113/69; PULSE 79; RESP 17; TEMP 97.3
--- NOTE | 2021-03-10 19:41 | P.DS ---
Providers Date of admission: 03/08/21 09:12 Expected date of discharge: 03/10/21 Attending physician: Andrei Wellington Consults: 03/08/21 09:22 Consult Physician Stat Consulting Provider: [facility] Consult Reason/Comments: STEMI Do you want consulting provider notified?: Already Contacted Primary care physician: Andrei Wellington Hospital Course: 55-year-old male with past significant medical history of hypertension is admitted to the hospital for Anterospetal STEMI. Patient presented to the emergency department with chest discomfort located over his midsternal area, with radiation to his neck. He states he's been having chest discomfort on the anterior portion of his chest for the last 1-2 days, today around 7:30 AM the chest discomfort worsened, which he decided to go to the emergency department. Upon arrival to the emergency department 12-lead EKG was performed, revealing ST segment elevations in leads anterior lateral leads with reciprocal changes in in ferior leads. STEMI alert was activated, patient was transferred to the [facility] for PCI intervention. Patient had stent placement to the mid LAD. See percutaneous coronary intervention dictation from Dr. Aguilera. During hospital stay patient did not have any chest pain, shortness of breath, palpitations after coronary stenting to the mid LAD. ECHOCardiogram reveals ischemic cardiomyopathy with ejection fraction of 40-45%, continuation of cardiac meds placed by cardiology. Hemoglobin A1c was obtained during hospital stay patient's noted to have a hemoglobin A1c of 6.3 with a diagnosis of prediabetes will follow-up with primary care physician in 1-2 days. Patient tolerated hospital stay well without no acute events after percutaneous coronary intervention of coronary stenting to the mid LAD. Patient will be discharged in a stable condition with a guarded prognosis due to multiple comorbidities. Assessment: Chest pain Anteroseptal STEMI Hypertension Ischemic cardiomyopathy with ejection fraction of 40-45% Per-Diabetes with a hemoglobin A1c of 6.3 History of tonsillectomy Obesity with a BMI of 33.1 Full code Final diagnosis Anteroseptal STEMI; patient will be placed on losartan 12.5 mg daily, Aldactone 25 mg daily dual antiplatelet therapy of aspirin and Effient, and Coreg 12.5 mg twice a day. Patient will have close follow-up with cardiology Ischemic cardiomyopathy with ejection fraction of 40-45%; patient is placed on losartan, Aldactone and Coreg, will follow-up with cardiology for continued treatment plan Pre-diabetes with a hemoglobin A1c of 6.3, diabetic diet will follow-up with primary care in 1-2 days Health Concerns: Complexity of medical treatment plan Pertinent Studies: Echocardiogram; see dictation noted continue Fay's systolic function mildly to moderately impaired with ejection fraction to 40-45% ; noted LV wall motion hypokinetic Chest x-ray; see dictation from radiologist, chronic changes without acute pulmonary processes noted Procedures: Percutaneous coronary intervention for Anteroseptal STEMI; see dictation from Dr. Aguilera, stent was placed to the mid LAD. Patient Condition at Discharge: Fair Plan - Discharge Summary Discharge Rx Participant: Yes New Discharge Prescriptions: New Prasugrel [Effient] 10 mg PO DAILY 30 Days #30 tab Aspirin 81 mg PO DAILY tab carvediloL [Coreg*] 12.5 mg PO BID-W/MEALS 30 Days #60 tab Losartan [Cozaar] 12.5 mg PO DAILY@1700 30 Days #30 tab Atorvastatin [Lipitor] 80 mg PO DAILY 30 Days #30 tab Spironolactone [Aldactone] 25 mg PO DAILY 30 Days #30 tab Nitroglycerin Sl Tabs [Nitrostat] 0.4 mg SUBLINGUAL Q5M PRN #25 tab PRN Reason: Chest Pain Discharge Medication List Prasugrel [Effient] 10 mg PO DAILY 30 Days #30 tab 03/09/21 [Rx] Aspirin 81 mg PO DAILY tab 03/10/21 [Rx] Atorvastatin [Lipitor] 80 mg PO DAILY 30 Days #30 tab 03/10/21 [Rx] Losartan [Cozaar] 12.5 mg PO DAILY@1700 30 Days #30 tab 03/10/21 [Rx] Nitroglycerin Sl Tabs [Nitrostat] 0.4 mg SUBLINGUAL Q5M PRN #25 tab 03/10/21 [Rx] Spironolactone [Aldactone] 25 mg PO DAILY 30 Days #30 tab 03/10/21 [Rx] carvediloL [Coreg*] 12.5 mg PO BID-W/MEALS 30 Days #60 tab 03/10/21 [Rx] Follow up Appointment(s)/Referral(s): Diogo Berrios MD [STAFF PHYSICIAN] - 1 Week (Office will call appt. date and time.) Patient Instructions/Handouts: *[facility] - After Heart Catheterization - [facility] [employer] Instructions, Heart Attack (DC), Heart Healthy Diet (ED), Low- Sodium Diet (ED) Activity/Diet/Wound Care/Special Instructions: Cardiology Instructions After Cardiac Catheterization with Stent Placement: 1. Aspirin as anti-platelet therapy - Aspirin lessens the chance of heart attack and stroke. It helps prevent blood clots from forming, allowing the blood to flow more easily. Each day, you will take one 81 mg (non-enteric coated) tablet daily. You will be taking aspirin as a lifelong medication. Do not stop unless instructed by your doctor. 2. Anti-platelet Therapy. -In addition to aspirin, you will take ONE of the following anti-platelet medications daily. This will help prevent a clot from forming in your stent: Effient (prasugrel) -You will need to take your anti-platelet medicine every day for 12 months -Please consult your heart doctor before you stop this medicine. -They may want you to continue for a longer period of time. 3. Statins -A statin medication lowers cholesterol levels in the blood. This helps slow the progression of heart disease. - Please take your statin medication as prescribed by your doctor. -You may be taking one of the following statins: Lipitor (atorvastatin) Other Medications -Losartan- Angiotensin II Receptor Anthony- can help your heart work better after a heart attack and decrease the amount of damage from a heart attack -Carvedilol (Coreg)- Beta anthony. Is a medication that protects your heart from stress and can prevent future heart attacks. It can slow your heart rate. It can take weeks for your body to get used to a beta anthony. The dose may need to be changed a few times as your body adjusts -Spironolactone (Aldactone)- is a type of diuretic; it helps the body get rid of extra salt and fluid. However, it also helps the body hold onto potassium. Do not stop taking these medicines without talking to your doctor. -Take all other medicines as directed by your doctor. Do not take any extra aspirin or ibuprofen. They can increase your risk of bleeding. Many [id number]-tfqywko drugs contain aspirin. If you are unsure about what the drug contains, check with your pharmacist before taking it. -For mild discomfort, you may take plain Tylenol (acetaminophen). Follow dose directions, but do not take more than 4,000 mg of acetaminophen in 24 hours. Contact your doctor right away or go to the nearest hospital Emergency Room if you have: -Severe angina or chest pain. (This may be a sign of a problem with your stent.) -Excessive bruising, blood in urine/stool or black tarry stools. Healthy LifeStyle It is important to keep a heart healthy lifestyle. This can improve your long- term health and decrease your risk for heart attacks. -Avoid tobacco: the most important thing you can do to protect your health. -Managing your blood cholesterol, blood pressure, weight, and stress. -The importance of regular exercise. -Heart Healty Diet Discharge Disposition: HOME SELF-CARE
== END 2021-03-10 19:24 | disposition home or self-care (01) | DRG 247 ==
LOC: EC 08:44 → 2SICU 09:12 → 3SCARD 03-09 12:28
PROVIDERS: ADMIT Family Medicine; ATTEND Family Medicine
PROC: B2111ZZ Fluoroscopy of Multiple Coronary Arteries using Low Osmolar Contrast (ICD-10-PCS; 2021-03-08)
PROC: 027034Z Dilation of Coronary Artery, One Artery with Drug-eluting Intraluminal Device, Percutaneous Approach (ICD-10-PCS; principal; 2021-03-08 09:19)
PROC: 4A023N7 Measurement of Cardiac Sampling and Pressure, Left Heart, Percutaneous Approach (ICD-10-PCS; 2021-03-08 09:19)
DX: I21.09 ST elevation (STEMI) myocardial infarction involving other coronary artery of anterior wall (principal); D72.829 Elevated white blood cell count, unspecified; E66.9 Obesity, unspecified; I10 Essential (primary) hypertension; I25.10 Atherosclerotic heart disease of native coronary artery without angina pectoris; I25.5 Ischemic cardiomyopathy; I27.20 Pulmonary hypertension, unspecified; R73.03 Prediabetes; Z68.33 Body mass index [BMI] 33.0-33.9, adult; Z79.02 Long term (current) use of antithrombotics/antiplatelets; Z79.82 Long term (current) use of aspirin; Z79.899 Other long term (current) drug therapy; Z80.3 Family history of malignant neoplasm of breast; Z82.49 Family history of ischemic heart disease and other diseases of the circulatory system; Z87.891 Personal history of nicotine dependence; Z95.5 Presence of coronary angioplasty implant and graft; M25.512 Pain in left shoulder; M25.511 Pain in right shoulder
CPT/HCPCS: 71045; 80048; 80053; 83036; 83735; 84484; 85025; 85610; 85730; 93005; 93306; 93458; 99291

== ENCOUNTER 2021-03-12 19:09 | Inpatient (IN) | payer OTHER ==
--- NOTE | 2021-03-12 19:58 | ED ---
SOB HPI - General Chief Complaint: Shortness of Breath Stated Complaint: ANGELA/post stent tues Time Seen by Provider: 03/12/21 19:37 Source: patient Mode of arrival: wheelchair - History of Present Illness Initial Comments: 55 year-old male patient presents to the emergency department for evaluation of increased shortness of breath that started 2.5 hours ago. Patient is 4 days s/p STEMI with stent placement. States he has been doing well. He does report mild dry cough. States he cannot catch his breath. Worsens with activity. Denies any fever or chills. He is unsure if he is having any swelling to his legs. Denies leg pain. Denies any chest pain. He is a former smoker, he quit many years ago. Patient denies any recent rash, abdominal pain, diarrhea, constipation, back brian n, numbness, tingling, dizziness, weakness, hematuria, dysuria, urinary urgency, urinary frequency, headache, visual changes, or any other complaints. - Related Data Previous Rx's Medication Instructions Recorded Prasugrel [Effient] 10 mg PO DAILY 30 Days #30 tab 03/09/21 Aspirin 81 mg PO DAILY tab 03/10/21 Atorvastatin [Lipitor] 80 mg PO DAILY 30 Days #30 tab 03/10/21 Losartan [Cozaar] 12.5 mg PO DAILY@1700 30 Days #30 03/10/21 tab Nitroglycerin Sl Tabs [Nitrostat] 0.4 mg SUBLINGUAL Q5M PRN #25 tab 03/10/21 Spironolactone [Aldactone] 25 mg PO DAILY 30 Days #30 tab 03/10/21 carvediloL [Coreg*] 12.5 mg PO BID-W/MEALS 30 Days #60 03/10/21 tab Allergies Allergy/AdvReac Type Severity Reaction Status Date / Time No Known Allergies Allergy Verified 03/12/21 19:26 Review of Systems ROS Statement: Those systems with pertinent positive or pertinent negative responses have been documented in the HPI. ROS Other: All systems not noted in ROS Statement are negative. Past Medical History Past Medical History: Chest Pain / Angina, Hypertension, Myocardial Infarction ([place]) Additional Past Medical History / Comment(s): stent placed mar 2021 Last Myocardial Infarction Date:: 03/08/2021 History of Any Multi-Drug Resistant Organisms: None Reported Past Surgical History: Heart Catheterization With Stent, Tonsillectomy Additional Past Surgical History / Comment(s): x1 Xience stent to mid LAD Past Anesthesia/Blood Transfusion Reactions: No Reported Reaction Date of Last Stent Placement:: 03/08/2021 Past Psychological History: No Psychological Hx Reported Smoking Status: Former smoker Past Alcohol Use History: Rare Past Drug Use History: None Reported - Past Family History Father Family Medical History: Myocardial Infarction ([place]) Additional Family Medical History / Comment(s): [place] w/ stents Mother Family Medical History: Cancer Additional Family Medical History / Comment(s): breast CA General Exam General appearance: alert, in no apparent distress, other (This is a well- developed, well-nourished adult male patient in mild respiratory distress. Vital signs upon presentation are temperature 99.0F, pulse 94, respirations 21, blood pressure 170/101, pulse ox 93% on room air.) ENT exam: Present: normal exam, normal oropharynx, mucous membranes moist Respiratory exam: Present: wheezes (Faint wheezes in the wheezes posteriorly.), rales (Bases posteriorly), other (Tachypnea). Absent: normal lung sounds bilaterally, respiratory distress, rhonchi, stridor Cardiovascular Exam: Present: regular rate, normal rhythm, normal heart sounds. Absent: systolic murmur, diastolic murmur, rubs, gallop, clicks GI/Abdominal exam: Present: soft, normal bowel sounds. Absent: distended, tenderness, guarding, rebound, rigid Neurological exam: Present: alert, oriented X3, CN II-XII intact Psychiatric exam: Present: normal affect, normal mood Skin exam: Present: warm, dry, intact, normal color. Absent: rash Course Vital Signs 03/12/21 03/12/21 03/12/21 19:22 21:39 21:46 Temperature 99 F Pulse Rate 94 89 89 Respiratory 21 Rate Blood Pressure 170/101 O2 Sat by Pulse 93 L Oximetry Medical Decision Making - Medical Decision Making 55-year-old male patient presented to the emergency department today for evaluation of shortness of breath that started about 2-1/2 hours prior to arrival. Physical examination did reveal some crackles and faint wheezing at the lung bases posteriorly. He was 93% on room air upon arrival. The Neck. Did have a low-grade temperature 99.0F. Labs reviewed and did reveal elevated white blood cell count at 12.6. Lactic was normal. Procalcitonin added. BNP was also elevated to 1500, added ECHO for the morning. Trop is elevated to 8.6, most likely as result of STEMI and cath on Sunday, we will trend. Cardiology consulted. I did discuss the case with my attending Dr. Olsen. Patient is a greeable. - Lab Data Result diagrams: 03/12/21 19:56 03/12/21 19:56 Lab Results 03/12/21 03/12/21 03/12/21 Range/Units 19:56 19:56 19:56 WBC 12.6 H (3.8-10.6) k/uL RBC 4.91 (4.30-5.90) m/uL Hgb 14.7 (13.0-17.5) gm/dL Hct 43.7 (39.0-53.0) % MCV 89.1 (80.0-100.0) fL MCH 29.9 (25.0-35.0) pg MCHC 33.6 (31.0-37.0) g/dL RDW 13.0 (11.5-15.5) % Plt Count 254 (150-450) k/uL MPV 8.5 Neutrophils % 85 % Lymphocytes % 10 % Monocytes % 4 % Eosinophils % 1 % Basophils % 0 % Neutrophils # 10.7 H (1.3-7.7) k/uL Lymphocytes # 1.2 (1.0-4.8) k/uL Monocytes # 0.5 (0-1.0) k/uL Eosinophils # 0.1 (0-0.7) k/uL Basophils # 0.0 (0-0.2) k/uL PT 9.7 (9.0-12.0) sec INR 0.9 (<1.2) APTT 23.7 (22.0-30.0) sec Sodium 137 (137-145) mmol/L Potassium 4.3 (3.5-5.1) mmol/L Chloride 105 (98-107) mmol/L Carbon Dioxide 26 (22-30) mmol/L Anion Gap 6 mmol/L BUN 21 H (9-20) mg/dL Creatinine 0.73 (0.66-1.25) mg/dL Est GFR (CKD-EPI)AfAm >90 (>60 ml/min/1.73 sqM) Est GFR (CKD-EPI)NonAf >90 (>60 ml/min/1.73 sqM) Glucose 134 H (74-99) mg/dL Plasma Lactic Acid Merlin (0.7-2.0) mmol/L Calcium 9.2 (8.4-10.2) mg/dL Total Bilirubin 1.0 (0.2-1.3) mg/dL AST 80 H (17-59) U/L ALT 61 H (4-49) U/L Alkaline Phosphatase 161 H (38-126) U/L Troponin I (0.000-0.034) ng/mL NT-Pro-B Natriuret Pep pg/mL Total Protein 6.7 (6.3-8.2) g/dL Albumin 4.2 (3.5-5.0) g/dL Coronavirus (PCR) (Not Detectd) 03/12/21 03/12/21 03/12/21 Range/Units 19:56 19:56 19:56 WBC (3.8-10.6) k/uL RBC (4.30-5.90) m/uL Hgb (13.0-17.5) gm/dL Hct (39.0-53.0) % MCV (80.0-100.0) fL MCH (25.0-35.0) pg MCHC (31.0-37.0) g/dL RDW (11.5-15.5) % Plt Count (150-450) k/uL MPV Neutrophils % % Lymphocytes % % Monocytes % % Eosinophils % % Basophils % % Neutrophils # (1.3-7.7) k/uL Lymphocytes # (1.0-4.8) k/uL Monocytes # (0-1.0) k/uL Eosinophils # (0-0.7) k/uL Basophils # (0-0.2) k/uL PT (9.0-12.0) sec INR (<1.2) APTT (22.0-30.0) sec Sodium (137-145) mmol/L Potassium (3.5-5.1) mmol/L Chloride (98-107) mmol/L Carbon Dioxide (22-30) mmol/L Anion Gap mmol/L BUN (9-20) mg/dL Creatinine (0.66-1.25) mg/dL Est GFR (CKD-EPI)AfAm (>60 ml/min/1.73 sqM) Est GFR (CKD-EPI)NonAf (>60 ml/min/1.73 sqM) Glucose (74-99) mg/dL Plasma Lactic Acid Merlin 1.3 (0.7-2.0) mmol/L Calcium (8.4-10.2) mg/dL Total Bilirubin (0.2-1.3) mg/dL AST (17-59) U/L ALT (4-49) U/L Alkaline Phosphatase (38-126) U/L Troponin I 8.550 H* (0.000-0.034) ng/mL NT-Pro-B Natriuret Pep 1880 pg/mL Total Protein (6.3-8.2) g/dL Albumin (3.5-5.0) g/dL Coronavirus (PCR) (Not Detectd) 03/12/21 Range/Units 19:56 WBC (3.8-10.6) k/uL RBC (4.30-5.90) m/uL Hgb (13.0-17.5) gm/dL Hct (39.0-53.0) % MCV (80.0-100.0) fL MCH (25.0-35.0) pg MCHC (31.0-37.0) g/dL RDW (11.5-15.5) % Plt Count (150-450) k/uL MPV Neutrophils % % Lymphocytes % % Monocytes % % Eosinophils % % Basophils % % Neutrophils # (1.3-7.7) k/uL Lymphocytes # (1.0-4.8) k/uL Monocytes # (0-1.0) k/uL Eosinophils # (0-0.7) k/uL Basophils # (0-0.2) k/uL PT (9.0-12.0) sec INR (<1.2) APTT (22.0-30.0) sec Sodium (137-145) mmol/L Potassium (3.5-5.1) mmol/L Chloride (98-107) mmol/L Carbon Dioxide (22-30) mmol/L Anion Gap mmol/L BUN (9-20) mg/dL Creatinine (0.66-1.25) mg/dL Est GFR (CKD-EPI)AfAm (>60 ml/min/1.73 sqM) Est GFR (CKD-EPI)NonAf (>60 ml/min/1.73 sqM) Glucose (74-99) mg/dL Plasma Lactic Acid Merlin (0.7-2.0) mmol/L Calcium (8.4-10.2) mg/dL Total Bilirubin (0.2-1.3) mg/dL AST (17-59) U/L ALT (4-49) U/L Alkaline Phosphatase (38-126) U/L Troponin I (0.000-0.034) ng/mL NT-Pro-B Natriuret Pep pg/mL Total Protein (6.3-8.2) g/dL Albumin (3.5-5.0) g/dL Coronavirus (PCR) Not Detected (Not Detectd) - Radiology Data Radiology results: report reviewed, image reviewed Two-view x-ray of the chest is obtained. Report is reviewed in its entirety. Impression by Dr. Rodriguez shows patchy bilateral pneumonia is mostly new compared to last exam. Disposition Clinical Impression: Multifocal pneumonia, Elevated troponin Disposition: ADMITTED IP TO THIS [facility] Condition: Serious Referrals: Andrei Wellington MD [Primary Care Provider] - 1-2 days Decision to Admit Reason: Admit from EC Decision Date: 03/12/21 Decision Time: 21:51
[2021-03-12 20:20] LABS: Basophils % (A) 0 %; Eosinophils # (A) 0.1 k/uL (0-0.7); Eosinophils % (A) 1 %; HCT 43.7 % (39.0-53.0); HGB 14.7 gm/dL (13.0-17.5); Lymphocytes # (A) 1.2 k/uL (1.0-4.8); Lymphocytes % (A) 10 %; MCH 29.9 pg (25.0-35.0); MCHC 33.6 g/dL (31.0-37.0); MCV 89.1 fL (80.0-100.0); Mean Platelet Volume 8.5; Monocytes # (A) 0.5 k/uL (0-1.0); Monocytes % (A) 4 %; Neutrophils # (A) 10.7 k/uL (1.3-7.7); Neutrophils % (A) 85 %; Platelet Count 254 k/uL (150-450); RBC 4.91 m/uL (4.30-5.90); WBC 12.6 k/uL (3.8-10.6)
--- NOTE | 2021-03-12 20:23 | XR ---
EXAMINATION TYPE: XR chest 2V DATE OF EXAM: 03/12/2021 COMPARISON: 03/08/2021 HISTORY: Difficulty breathing TECHNIQUE: 2 views FINDINGS: There is some patchy infiltrates in both lung jiménez. This is more on the right side. Heart is top normal in size. There is no pleural effusion. Bony thorax is intact. Mediastinum is normal. IMPRESSION: Patchy bilateral pneumonia is mostly new compared to last exam.
[2021-03-12 20:38] LABS: INR 0.9 (<1.2); Partial Thromboplastin Time 23.7 sec (22.0-30.0); Prothrombin Time 9.7 sec (9.0-12.0)
[2021-03-12 20:41] LABS: ALT 61 U/L (4-49); AST 80 U/L (17-59); African American GFR (CKD) >90 (>60 ml/min/1.73 sqM); Albumin 4.2 g/dL (3.5-5.0); Alkaline Phosphatase 161 U/L (38-126); Anion Gap 6 mmol/L; Blood Urea Nitrogen 21 mg/dL (9-20); Calcium 9.2 mg/dL (8.4-10.2); Carbon Dioxide 26 mmol/L (22-30); Chloride 105 mmol/L (98-107); Glucose 134 mg/dL (74-99); Non-African American GFR(CKD) >90 (>60 ml/min/1.73 sqM); Potassium 4.3 mmol/L (3.5-5.1); Sodium 137 mmol/L (137-145); Total Protein 6.7 g/dL (6.3-8.2)
[2021-03-12] MEDS ORDERED: cefTRIAXone IN SWFI 1,000 MG/10 ML SYRINGE IVP STA (21:26)
[2021-03-12] MEDS ORDERED: AZITHROMYCIN 500 MG in SODIUM CHLORIDE 0.9% 250 ML IVPB STA (21:26)
[2021-03-12] MEDS ORDERED: IPRATROPIUM-ALBUTEROL 3 ML NEB INHALATION PRN (21:27)
[2021-03-12] MEDS ORDERED: IPRATROPIUM-ALBUTEROL 3 ML NEB INHALATION STA (21:27)
[2021-03-12] MEDS ORDERED: NALOXONE 0.4 MG/ML 1 ML VIAL IV PRN (21:47)
[2021-03-13] MEDS: IPRATROPIUM-ALBUTEROL 3 ML NEB INHALATION SCH ×4 (07:47→20:55)
[2021-03-13] MEDS ORDERED: NITROGLYCERIN SL TABS 0.4 MG TAB SUBLINGUAL PRN (07:59)
[2021-03-13] MEDS ORDERED: PIPERACILLIN-TAZOBACTAM 3.375 GM in SODIUM CHLORIDE 0.9% 100 ML IVPB SCH (08:15)
[2021-03-13] MEDS ORDERED: SPIRONOLACTONE 25 MG TAB PO SCH (09:00)
[2021-03-13] MEDS: FAMOTIDINE 20 MG/2 ML VIAL IV SCH ×2 (10:00→20:43)
[2021-03-13] MEDS: HEPARIN SODIUM,PORCINE/PF 5,000 UNIT/0.5 ML SYRINGE SQ SCH ×2 (10:00→20:43)
[2021-03-13] MEDS: FUROSEMIDE 10 MG/ML 4 ML VIAL IV SCH ×2 (10:00→20:42)
[2021-03-13] MEDS: ATORVASTATIN 80 MG TAB PO SCH (10:01)
[2021-03-13] MEDS: PRASUGREL 10 MG TAB PO SCH (10:01)
[2021-03-13] MEDS: ASPIRIN 81 MG PO SCH (10:01)
--- NOTE | 2021-03-13 10:02 | P.HPIM ---
History of Present Illness This is a pleasant 55 years old male with past medical history of hypertension, coronary artery disease status post stent placement and hyperlipidemia Patient was just discharged 4 days ago for STEMI status post PCI to the mid LAD on 03/08 with ischemic cardiomyopathy ejection fraction 40-45% After discharge patient states that he was getting shortness of breath with little coughing and no chest pain, no fever. No abdominal or urinary complaints. No headache or weakness. Vitals are stable and patient is afebrile Has mild leukocytosis of 12.6k . Trace of CBC, INR, BMP are unremarkable. Liver enzymes are slightly elevated with AST 80 and ALT 61 Troponins are elevated 8.5, 6.5 and 6.2. ProBNP is 1880 Coronavirus is not detected. EKG showed normal sinus rhythm at [address]-T changes. Chest x-ray: Patchy bilateral pneumonia mostly new compared to last exam In the emergency room patient was started on ceftriaxone, Zithromax Review of Systems CONSTITUTIONAL: No fever, no malaise, no fatigue. HEENT: No recent visual problems or hearing problems. Denied any sore throat. CARDIOVASCULAR: No orthopnea, PND, no palpitations, no syncope. PULMONARY: No chest wall tenderness, no hemoptysis. GASTROINTESTINAL: No diarrhea, no nausea, no vomiting, no abdominal pain. Normoactive bowel sounds. NEUROLOGICAL: No headaches, no weakness, no numbness. HEMATOLOGICAL: Denies any bleeding or petechiae. GENITOURINARY: Denies any burning micturition, frequency, or urgency. MUSCULOSKELETAL/RHEUMATOLOGICAL: Denies any joint pain, swelling, or any muscle pain. ENDOCRINE: Denies any polyuria or polydipsia. Past Medical History Past Medical History: Chest Pain / Angina, Hypertension, Myocardial Infarction ([place]) Additional Past Medical History / Comment(s): stent placed mar 2021 Last Myocardial Infarction Date:: 03/08/2021 History of Any Multi-Drug Resistant Organisms: None Reported Past Surgical History: Heart Catheterization With Stent, Tonsillectomy Additional Past Surgical History / Comment(s): x1 Xience stent to mid LAD Past Anesthesia/Blood Transfusion Reactions: No Reported Reaction Date of Last Stent Placement:: 03/08/2021 Past Psychological History: No Psychological Hx Reported Smoking Status: Former smoker Past Alcohol Use History: Rare Past Drug Use History: None Reported - Past Family History Father Family Medical History: Myocardial Infarction ([place]) Additional Family Medical History / Comment(s): [place] w/ stents Mother Family Medical History: Cancer Additional Family Medical History / Comment(s): breast CA Medications and Allergies Home Medications Medication Instructions Recorded Confirmed Type Prasugrel [Effient] 10 mg PO DAILY 30 Days #30 tab 03/09/21 03/12/21 Rx Aspirin 81 mg PO DAILY tab 03/10/21 03/12/21 Rx Atorvastatin [Lipitor] 80 mg PO DAILY 30 Days #30 tab 03/10/21 03/12/21 Rx Losartan [Cozaar] 12.5 mg PO DAILY@1700 30 Days #30 03/10/21 03/12/21 Rx tab Nitroglycerin Sl Tabs [Nitrostat] 0.4 mg SUBLINGUAL Q5M PRN #25 tab 03/10/21 03/12/21 Rx Spironolactone [Aldactone] 25 mg PO DAILY 30 Days #30 tab 03/10/21 03/12/21 Rx carvediloL [Coreg*] 12.5 mg PO BID-W/MEALS 30 Days #60 03/10/21 03/12/21 Rx tab Allergies Allergy/AdvReac Type Severity Reaction Status Date / Time No Known Allergies Allergy Verified 03/12/21 23:07 Physical Exam Vitals: Vital Signs Temp Pulse Pulse Resp BP BP Pulse Ox 03/13/21 07:47 73 97 03/13/21 03:55 79 18 120/77 95 03/12/21 23:07 91 18 141/90 96 03/12/21 21:46 89 03/12/21 21:39 89 03/12/21 19:22 99 F 94 21 170/101 93 L Intake and Output 03/12/21 03/13/21 03/13/21 22:59 06:59 14:59 Other: Voiding Method Toilet # Voids 1 Weight 105.687 kg 105.687 kg GENERAL: The patient is alert and oriented x3, not in any acute distress. Well developed, well nourished. HEENT: Pupils are round and equally reacting to light. EOMI. No scleral icterus. No conjunctival pallor. Normocephalic, atraumatic. No pharyngeal erythema. No thyromegaly. CARDIOVASCULAR: S1 and S2 present. No murmurs, rubs, or gallops. -PULMONARY: Chest is clear to auscultation, no wheezing bilateral basal crepitation ABDOMEN: Soft, nontender, nondistended, normoactive bowel sounds. No palpable organomegaly. MUSCULOSKELETAL: No joint swelling or deformity. EXTREMITIES: No cyanosis, clubbing, or pedal edema. NEUROLOGICAL: Gross neurological examination did not reveal any focal deficits. SKIN: No rashes. No petechiae Results CBC & Chem 7: 03/12/21 19:56 03/12/21 19:56 Labs: Abnormal Lab Results - Last 24 Hours (Table) 03/12/21 03/12/21 03/12/21 Range/Units 19:56 19:56 19:56 WBC 12.6 H (3.8-10.6) k/uL Neutrophils # 10.7 H (1.3-7.7) k/uL BUN 21 H (9-20) mg/dL Glucose 134 H (74-99) mg/dL AST 80 H (17-59) U/L ALT 61 H (4-49) U/L Alkaline Phosphatase 161 H (38-126) U/L Troponin I 8.550 H* (0.000-0.034) ng/mL 03/12/21 03/13/21 Range/Units 22:36 02:17 WBC (3.8-10.6) k/uL Neutrophils # (1.3-7.7) k/uL BUN (9-20) mg/dL Glucose (74-99) mg/dL AST (17-59) U/L ALT (4-49) U/L Alkaline Phosphatase (38-126) U/L Troponin I 6.520 H* 6.220 H* (0.000-0.034) ng/mL Thrombosis Risk Factor Assmnt - Choose All That Apply Any of the Below Risk Factors Present?: No Other Risk Factors: No Other congenital or acquired thrombophilia - If yes, enter type in comment: No Thrombosis Risk Factor Assessment Level: Very Low Risk Assessment and Plan Assessment: Ischemic cardiomyopathy with ejection fraction 40-45% with possible systolic CHF Possible Bilateral hospital acquired pneumonia. covid test is negative Elevated troponin, patient is a status post STEMI and cardiac cath with LAD stent on 03/08 Hypertension Hyperlipidemia History of coronary artery disease status post stent Plan: This is a pleasant 55 years old male who presents with bilateral pneumonia and high troponin. Continue with antibiotic and started on Augmentin and follow-up of blood culture, sputum culture and 40calcitonin. follow-up echocardiogram Cardiology consult Start Lasix 40 mg twice a day. And monitor creatinine and electrolytes Repeat chest x-ray tomorrow morning Labs and medication were reviewed.. Continue same treatment. Continue with symptomatic treatment. Resume home medication. Monitor lytes and vitals. DVT and GI prophylaxis. Further recommendations depends on the clinical course of the patient DVT prophylaxis: Subcutaneous heparin GI Prophylaxis: Pepcid PT/OT: Pending Prognosis is guarded
[2021-03-13] MEDS ORDERED: SPIRONOLACTONE 25 MG TAB PO STA (10:53)
--- NOTE | 2021-03-13 14:29 | P.CRDCN ---
History of Present Illness Consult date: 03/13/21 Consult reason: shortness of breath History of present illness: The patient is a 55-year-old male who was recently admitted to the hospital with non-A ST elevated myocardial infarction where he underwent PCI of the mid LAD. He returns to the emergency room with increased shortness of breath over the last 24 hours. This is especially difficult when attempting to lie flat. No chest pain or chest pressure. No palpitations, dizziness, or lightheadedness. He states his symptoms are not consistent with what brought him into the emergency room prior to his recent myocardial infarction. The patient was interviewed and examined in the emergency room. He states he is feeling much better since receiving Lasix. He is accompanied by his . DIAGNOSTICS: EKG shows sinus mechanism without ST or T-wave abnormalities Previous echocardiogram revealed LV function of 40-45% with apical hypokinesis Chest x-ray shows patchy bilateral pneumonia Laboratory data: WBC 12.6, hemoglobin 14.7, hematocrit 43.7, platelet 254, sodium 137, potassium 4.3, BUN 21, creatinine 0.73, AST 80, ALT 61, troponin 8.5, 6.5, 6.2, BNP 1880, COVID-19 PCR negative Vital signs: Blood pressure 120/74, heart rate 81, respiratory rate 20, SpO2 94% on room air PAST MEDICAL HISTORY: Coronary artery disease., Recent stenting of mid RCA, ischemic cardiomyopathy, hypertension, dyslipidemia, former smoker REVIEW OF SYSTEMS: No fever or chills. No cough or expectoration. No diaphoresis. Patient denies headache, dizziness, blurred vision, double vision. Patient denies any stomach discomfort. No nausea, vomiting. No hematochezia. No hematemesis. Denies any black stools or blood in his stools. Denies dysuria or hematuria. Positive for shortness of breath. Positive for weakness. Negative for chest pain or chest pressure PHYSICAL EXAMINATION: This is a 55 year-old male in no apparent distress at the time of my examination. HEENT: Head is atraumatic, normocephalic. Pupils are equal, round. Sclerae anicteric. Conjunctivae are clear. Mucous membranes of the mouth are moist. Neck is supple. There is no jugular venous distention. No carotid bruit is heard. CHEST EXAMINATION: Fine crackles in the bilateral bases. No chest wall tenderness is noted on palpation or with deep breathing. HEART EXAMINATION: Heart regular rate and rhythm. S1, S2 heard. No murmurs, gallops or rub. ABDOMEN: Soft, nontender. Bowel sounds are heard. No organomegaly noted. EXTREMITIES: 2+ peripheral pulses. Mild peripheral edema and no calf tenderness noted. NEUROLOGIC EXAMINATION: Patient is awake, alert and oriented x3. FINAL ASSESSMENT AND PLAN: Elevated troponins, secondary to recent stenting Coronary artery disease, recent stenting to mid RCA Ischemic cardiomyopathy, known EF 40-45% Hypertension Dyslipidemia Shortness of breath, likely secondary to pneumonia versus congestive heart failure Elevated liver enzymes PLAN: Resume home medication regimen Management of pneumonia per primary team Continue to monitor liver function Further recommendations will be based upon clinical course The patient has been seen and evaluated. Plan of care has been reviewed and agreed upon by Dr Berrios. Past Medical History Past Medical History: Chest Pain / Angina, Hypertension, Myocardial Infarction ([place]) Additional Past Medical History / Comment(s): stent placed mar 2021 Last Myocardial Infarction Date:: 03/08/2021 History of Any Multi-Drug Resistant Organisms: None Reported Past Surgical History: Heart Catheterization With Stent, Tonsillectomy Additional Past Surgical History / Comment(s): x1 Xience stent to mid LAD Past Anesthesia/Blood Transfusion Reactions: No Reported Reaction Date of Last Stent Placement:: 03/08/2021 Past Psychological History: No Psychological Hx Reported Smoking Status: Former smoker Past Alcohol Use History: Rare Past Drug Use History: None Reported - Past Family History Father Family Medical History: Myocardial Infarction ([place]) Additional Family Medical History / Comment(s): [place] w/ stents Mother Family Medical History: Cancer Additional Family Medical History / Comment(s): breast CA Medications and Allergies Home Medications Medication Instructions Recorded Confirmed Type Prasugrel [Effient] 10 mg PO DAILY 30 Days #30 tab 03/09/21 03/12/21 Rx Aspirin 81 mg PO DAILY tab 03/10/21 03/12/21 Rx Atorvastatin [Lipitor] 80 mg PO DAILY 30 Days #30 tab 03/10/21 03/12/21 Rx Losartan [Cozaar] 12.5 mg PO DAILY@1700 30 Days #30 03/10/21 03/12/21 Rx tab Nitroglycerin Sl Tabs [Nitrostat] 0.4 mg SUBLINGUAL Q5M PRN #25 tab 03/10/21 03/12/21 Rx Spironolactone [Aldactone] 25 mg PO DAILY 30 Days #30 tab 03/10/21 03/12/21 Rx carvediloL [Coreg*] 12.5 mg PO BID-W/MEALS 30 Days #60 03/10/21 03/12/21 Rx tab Allergies Allergy/AdvReac Type Severity Reaction Status Date / Time No Known Allergies Allergy Verified 03/12/21 23:07 Physical Exam Vitals: Vital Signs Temp Pulse Pulse Resp BP BP Pulse Ox 03/13/21 13:20 81 20 120/74 94 L 03/13/21 12:51 86 18 118/74 96 03/13/21 12:32 69 03/13/21 12:13 71 18 121/81 96 03/13/21 11:54 70 03/13/21 08:01 73 03/13/21 07:47 73 97 03/13/21 03:55 79 18 120/77 95 03/12/21 23:07 91 18 141/90 96 03/12/21 21:46 89 03/12/21 21:39 89 03/12/21 19:22 99 F 94 21 170/101 93 L Intake and Output 03/12/21 03/13/21 03/13/21 22:59 06:59 14:59 Other: Voiding Method Toilet # Voids 1 Weight 105.687 kg 105.687 kg Results 03/12/21 19:56 03/12/21 19:56 Cardiac Enzymes 03/12/21 03/12/21 03/12/21 Range/Units 19:56 19:56 22:36 AST 80 H (17-59) U/L Troponin I 8.550 H* 6.520 H* (0.000-0.034) ng/mL 03/13/21 Range/Units 02:17 AST (17-59) U/L Troponin I 6.220 H* (0.000-0.034) ng/mL Coagulation 03/12/21 Range/Units 19:56 PT 9.7 (9.0-12.0) sec APTT 23.7 (22.0-30.0) sec CBC 03/12/21 Range/Units 19:56 WBC 12.6 H (3.8-10.6) k/uL RBC 4.91 (4.30-5.90) m/uL Hgb 14.7 (13.0-17.5) gm/dL Hct 43.7 (39.0-53.0) % Plt Count 254 (150-450) k/uL Comprehensive Metabolic Panel 03/12/21 Range/Units 19:56 Sodium 137 (137-145) mmol/L Potassium 4.3 (3.5-5.1) mmol/L Chloride 105 (98-107) mmol/L Carbon Dioxide 26 (22-30) mmol/L BUN 21 H (9-20) mg/dL Creatinine 0.73 (0.66-1.25) mg/dL Glucose 134 H (74-99) mg/dL Calcium 9.2 (8.4-10.2) mg/dL AST 80 H (17-59) U/L ALT 61 H (4-49) U/L Alkaline Phosphatase 161 H (38-126) U/L Total Protein 6.7 (6.3-8.2) g/dL Albumin 4.2 (3.5-5.0) g/dL Current Medications Generic Name Dose Route Start Last Admin Trade Name Freq PRN Reason Stop Dose Admin Albuterol/Ipratropium 3 ml 03/12/21 21:27 Ipratropium-Albuterol 3 Ml Neb INHALATION RT-QID PRN Shortness Of Breath Or Wheezing Albuterol/Ipratropium 3 ml 03/13/21 08:00 03/13/21 11:54 Ipratropium-Albuterol 3 Ml Neb INHALATION 3 ml RT-QID VENITA Administration Amoxicillin/Clavulanate Potassium 1 each 03/13/21 21:00 Amoxic-Pot Clav 875-125mg 1 Each Tab PO 03/18/21 21:01 Q12HR VENITA Aspirin 81 mg 03/13/21 09:00 03/13/21 10:01 Aspirin 81 Mg PO 81 mg DAILY VENITA Administration Atorvastatin Calcium 80 mg 03/13/21 09:00 03/13/21 10:01 Atorvastatin 80 Mg Tab PO 80 mg DAILY VENITA Administration Carvedilol 12.5 mg 03/13/21 17:30 Carvedilol 12.5 Mg Tab PO BID-W/MEALS VENITA Famotidine 20 mg 03/13/21 09:00 03/13/21 10:00 Famotidine 20 Mg/2 Ml Vial IV 20 mg Q12HR VENITA Administration Furosemide 40 mg 03/13/21 09:00 03/13/21 10:00 Furosemide 10 Mg/Ml 4 Ml Vial IV 40 mg Q12HR VENITA Administration Heparin Sodium (Porcine) 5,000 unit 03/13/21 09:00 03/13/21 10:00 Heparin Sodium,Porcine/Pf 5,000 Unit/0.5 Ml Syringe SQ 5,000 unit Q12HR VENITA Administration Losartan Potassium 12.5 mg 03/13/21 17:00 Losartan 25 Mg Tab PO DAILY@1700 VENITA Naloxone HCl 0.2 mg 03/12/21 21:47 Naloxone 0.4 Mg/Ml 1 Ml Vial IV Q2M PRN Opioid Reversal Nitroglycerin 0.4 mg 03/13/21 07:59 Nitroglycerin Sl Tabs 0.4 Mg Tab SUBLINGUAL Q5M PRN Chest Pain Prasugrel 10 mg 03/13/21 09:00 03/13/21 10:01 Prasugrel 10 Mg Tab PO 10 mg DAILY VENITA Administration Intake and Output 03/12/21 03/13/21 03/13/21 22:59 06:59 14:59 Other: Voiding Method Toilet # Voids 1 Weight 105.687 kg 105.687 kg 03/12/21 19:56 03/12/21 19:56
[2021-03-13] MEDS: LOSARTAN 25 MG TAB PO SCH (17:56)
[2021-03-13] MEDS: carvediloL 12.5 MG TAB PO SCH (17:56)
[2021-03-13] MEDS: AMOXIC-POT CLAV 875-125MG 1 EACH TAB PO SCH (20:42)
[2021-03-13] MEDS ORDERED: AZITHROMYCIN 500 MG in SODIUM CHLORIDE 0.9% 250 ML IVPB SCH (22:00)
[2021-03-14] MEDS: carvediloL 12.5 MG TAB PO SCH ×2 (06:05→17:46)
--- NOTE | 2021-03-14 07:23 | XR ---
EXAMINATION TYPE: XR chest 1V DATE OF EXAM: 03/14/2021 COMPARISON: Chest x-ray 03/12/2021 HISTORY: Shortness of breath TECHNIQUE: Single frontal view of the chest is obtained. FINDINGS: Technique is somewhat apical lordotic. No evident pneumothorax or pleural effusion. Cardia c mediastinal silhouette shows an enlarged heart. Airspace disease has improved in the interval. Ther e are overlying leads. IMPRESSION: Interval improvement in lung aeration. Heart size may be accentuated by technique, follo w-up PA and lateral chest x-ray when stable for better evaluation.
[2021-03-14] MEDS: IPRATROPIUM-ALBUTEROL 3 ML NEB INHALATION SCH ×4 (08:34→20:11)
[2021-03-14 08:38] LABS: Basophils # (A) 0.1 k/uL (0-0.2); Basophils % (A) 1 %; Eosinophils # (A) 0.2 k/uL (0-0.7); Eosinophils % (A) 2 %; HCT 40.2 % (39.0-53.0); HGB 13.7 gm/dL (13.0-17.5); Lymphocytes # (A) 1.3 k/uL (1.0-4.8); Lymphocytes % (A) 20 %; MCH 29.9 pg (25.0-35.0); MCV 87.9 fL (80.0-100.0); Mean Platelet Volume 8.4; Monocytes # (A) 0.3 k/uL (0-1.0); Monocytes % (A) 5 %; Neutrophils # (A) 4.6 k/uL (1.3-7.7); Neutrophils % (A) 71 %; Platelet Count 278 k/uL (150-450); RBC 4.57 m/uL (4.30-5.90); RDW 13.5 % (11.5-15.5); WBC 6.4 k/uL (3.8-10.6)
[2021-03-14 09:08] LABS: African American GFR (CKD) >90 (>60 ml/min/1.73 sqM); Anion Gap 6 mmol/L; Blood Urea Nitrogen 26 mg/dL (9-20); Carbon Dioxide 28 mmol/L (22-30); Chloride 103 mmol/L (98-107); Glucose 128 mg/dL (74-99); Magnesium 2.1 mg/dL (1.6-2.3); Non-African American GFR(CKD) >90 (>60 ml/min/1.73 sqM); Potassium 4.1 mmol/L (3.5-5.1); Sodium 137 mmol/L (137-145)
[2021-03-14] MEDS: FUROSEMIDE 10 MG/ML 4 ML VIAL IV SCH (09:32)
[2021-03-14] MEDS: ATORVASTATIN 80 MG TAB PO SCH (09:32)
[2021-03-14] MEDS: ASPIRIN 81 MG PO SCH (09:32)
[2021-03-14] MEDS: HEPARIN SODIUM,PORCINE/PF 5,000 UNIT/0.5 ML SYRINGE SQ SCH ×2 (09:32→21:38)
[2021-03-14] MEDS: AMOXIC-POT CLAV 875-125MG 1 EACH TAB PO SCH ×2 (09:32→21:38)
[2021-03-14] MEDS: FAMOTIDINE 20 MG TAB PO SCH ×2 (09:32→21:38)
[2021-03-14] MEDS: PRASUGREL 10 MG TAB PO SCH (09:32)
--- NOTE | 2021-03-14 13:32 | P.PN ---
Subjective Progress Note Date: 03/14/21 HISTORY OF PRESENT ILLNESS: The patient is a 55-year-old male who was recently admitted to the hospital with non-A ST elevated myocardial infarction where he underwent PCI of the mid LAD. He returns to the emergency room with increased shortness of breath over the last 24 hours. This is especially difficult when attempting to lie flat. No chest pain or chest pressure. No palpitations, dizziness, or lightheadedness. He states his symptoms are not consistent with what brought him into the emergency room prior to his recent myocardial infarction. The patient was interviewed and examined in the emergency room. He states he is feeling much better since receiving Lasix. He is accompanied by his . DIAGNOSTICS: EKG shows sinus mechanism without ST or T-wave abnormalities Previous echocardiogram revealed LV function of 40-45% with apical hypokinesis Chest x-ray shows patchy bilateral pneumonia Laboratory data: WBC 12.6, hemoglobin 14.7, hematocrit 43.7, platelet 254, sodium 137, potassium 4.3, BUN 21, creatinine 0.73, AST 80, ALT 61, troponin 8.5, 6.5, 6.2, BNP 1880, COVID-19 PCR negative Vital signs: Blood pressure 120/74, heart rate 81, respiratory rate 20, SpO2 94% on room air 03/14/2021 Patient examined this morning at the bedside. Patient denies chest pain or pressure. He denies shortness of breath. He remains on IV Lasix 40 g every 12 hours. Patient's ejection fraction is 40-45%. It is noted the patient underwent cardiac catheterization with Dr. Aguilera on 03/08/2021 secondary to STEMI with PCI to the mid LAD. PHYSICAL EXAM: VITAL SIGNS: Reviewed. GENERAL: Well-developed in no acute distress. NECK: Supple. No JVD or thyromegaly LUNGS: Respirations even and unlabored. Lungs essentially clear to auscultation bilaterally. HEART: Regular rate and rhythm. S1 and S2 heard. EXTREMITIES: Normal range of motion. No clubbing or cyanosis. Peripheral pulses intact. No lower extremity edema ASSESSMENT: Acute systolic heart failure Coronary artery disease with recent stenting to the LAD Ischemic cardiomyopathy, ejection fraction 40-45% Hypertension Hyperlipidemia Abnormal troponins, secondary to recent STEMI Elevated LFTs PLAN: Discontinue IV Lasix Begin oral Lasix 40 mg daily Resume home dose of Aldactone Continue to monitor kidney function Continue additional cardiac medications Obtain limited echo to assess LV function Further recommendations pending patient's course Patient to follow up outpatient with Dr. Aguilera Nurse practitioner note has been reviewed by physician. Signing provider agrees with the documented findings, assessment, and plan of care. Objective - Vital Signs Vital signs: Vital Signs Temp 98.1 F 03/14/21 09:29 Pulse 68 03/14/21 12:38 Resp 16 03/14/21 11:24 BP 108/73 03/14/21 11:24 Pulse Ox 95 03/14/21 11:24 Intake & Output 03/13/21 03/14/21 03/14/21 18:59 06:59 18:59 Intake Total 740 Output Total 300 Balance -300 740 Weight 105 kg 103.7 kg Intake: Oral 740 Output: Urine 300 Other: Voiding Method Toilet Toilet - Labs CBC & Chem 7: 03/14/21 07:28 03/14/21 07:28 Labs: Abnormal Lab Results - Last 24 Hours (Table) 03/14/21 Range/Units 07:28 BUN 26 H (9-20) mg/dL Glucose 128 H (74-99) mg/dL Microbiology - Last 24 Hours (Table) 03/12/21 22:08 Blood Culture - Preliminary Blood No Growth after 24 hours 03/12/21 22:08 Blood Culture - Preliminary Blood No Growth after 24 hours
[2021-03-14] MEDS: LOSARTAN 25 MG TAB PO SCH (17:46)
[2021-03-15] MEDS: carvediloL 12.5 MG TAB PO SCH (06:35)
[2021-03-15 07:49] LABS: Basophils % (A) 1 %; Eosinophils # (A) 0.2 k/uL (0-0.7); Eosinophils % (A) 3 %; HCT 40.4 % (39.0-53.0); HGB 13.3 gm/dL (13.0-17.5); Lymphocytes # (A) 1.6 k/uL (1.0-4.8); Lymphocytes % (A) 20 %; MCH 29.7 pg (25.0-35.0); MCV 90.1 fL (80.0-100.0); Mean Platelet Volume 8.5; Monocytes # (A) 0.4 k/uL (0-1.0); Monocytes % (A) 5 %; Neutrophils # (A) 5.7 k/uL (1.3-7.7); Neutrophils % (A) 71 %; Platelet Count 280 k/uL (150-450); RBC 4.48 m/uL (4.30-5.90); RDW 13.1 % (11.5-15.5)
[2021-03-15 08:05] LABS: African American GFR (CKD) >90 (>60 ml/min/1.73 sqM); Anion Gap 8 mmol/L; Blood Urea Nitrogen 30 mg/dL (9-20); Carbon Dioxide 25 mmol/L (22-30); Chloride 105 mmol/L (98-107); Glucose 132 mg/dL (74-99); Non-African American GFR(CKD) >90 (>60 ml/min/1.73 sqM); Potassium 4.1 mmol/L (3.5-5.1); Sodium 138 mmol/L (137-145)
[2021-03-15] MEDS: IPRATROPIUM-ALBUTEROL 3 ML NEB INHALATION SCH ×3 (08:28→15:41)
--- NOTE | 2021-03-15 08:35 | ECHOF ---
Referral Reason:LV function, CHF MEASUREMENTS -------- HEIGHT: 180.3 cm WEIGHT: 103.4 kg BP: IVSd: 1.9 cm (0.6 - 1.1) LVIDd: 4.0 cm (3.9 - 5.3) LVPWd: 1.7 cm (0.6 - 1.1) IVSs: 2.1 cm LVIDs: 3.1 cm LVPWs: 2.0 cm Ao Diam: 4.5 cm (2.0 - 3.7) AV Cusp: 2.0 cm (1.5 - 2.6) LA Diam: 2.0 cm (2.7 - 3.8) FINDINGS -------- This was a technically difficult study with suboptimal views. Limited for LV function. The left ventricular size is normal. There is moderate concentric left ventricular hypertrophy. O verall left ventricular systolic function is mildly impaired with, an EF between 45 - 50 %. Apical septum LV wall motion is hypokinetic. There is no pericardial effusion. CONCLUSIONS -------- 1. The left ventricular size is normal. 2. There is no pericardial effusion. [employer]LE [employer]TER: Sasha Del Rio [facility]
[2021-03-15] MEDS ORDERED: FUROSEMIDE 40 MG TAB PO SCH (09:00)
[2021-03-15] MEDS ORDERED: SPIRONOLACTONE 25 MG TAB PO SCH (09:00)
[2021-03-15] MEDS: ATORVASTATIN 80 MG TAB PO SCH (09:16)
[2021-03-15] MEDS: PRASUGREL 10 MG TAB PO SCH (09:16)
[2021-03-15] MEDS: HEPARIN SODIUM,PORCINE/PF 5,000 UNIT/0.5 ML SYRINGE SQ SCH (09:16)
[2021-03-15] MEDS: AMOXIC-POT CLAV 875-125MG 1 EACH TAB PO SCH (09:16)
[2021-03-15] MEDS: FAMOTIDINE 20 MG TAB PO SCH (09:16)
[2021-03-15] MEDS: ASPIRIN 81 MG PO SCH (09:16)
[2021-03-15 10:02] VITALS: TEMP 97.7
--- NOTE | 2021-03-15 11:34 | P.PN ---
Subjective Progress Note Date: 03/15/21 HISTORY OF PRESENT ILLNESS: The patient is a 55-year-old male who was recently admitted to the hospital with non-A ST elevated myocardial infarction where he underwent PCI of the mid LAD. He returns to the emergency room with increased shortness of breath over the last 24 hours. This is especially difficult when attempting to lie flat. No chest pain or chest pressure. No palpitations, dizziness, or lightheadedness. He states his symptoms are not consistent with what brought him into the emergency room prior to his recent myocardial infarction. The patient was interviewed and examined in the emergency room. He states he is feeling much better since receiving Lasix. He is accompanied by his . DIAGNOSTICS: EKG shows sinus mechanism without ST or T-wave abnormalities Previous echocardiogram revealed LV function of 40-45% with apical hypokinesis Chest x-ray shows patchy bilateral pneumonia Laboratory data: WBC 12.6, hemoglobin 14.7, hematocrit 43.7, platelet 254, sodium 137, potassium 4.3, BUN 21, creatinine 0.73, AST 80, ALT 61, troponin 8.5, 6.5, 6.2, BNP 1880, COVID-19 PCR negative Vital signs: Blood pressure 120/74, heart rate 81, respiratory rate 20, SpO2 94% on room air 03/14/2021 Patient examined this morning at the bedside. Patient denies chest pain or pressure. He denies shortness of breath. He remains on IV Lasix 40 g every 12 hours. Patient's ejection fraction is 40-45%. It is noted the patient underwent cardiac catheterization with Dr. Aguilera on 03/08/2021 secondary to STEMI with PCI to the mid LAD. 03/15/2021 Patient examined this morning at the bedside. Patient denies chest pain or pressure. He denies shortness of breath. He remains on oral lasix. Echo completed revealed ejection fraction 45-50%. He is hoping to be discharged home today. PHYSICAL EXAM: VITAL SIGNS: Reviewed. GENERAL: Well-developed in no acute distress. NECK: Supple. No JVD or thyromegaly LUNGS: Respirations even and unlabored. Lungs essentially clear to auscultation bilaterally. HEART: Regular rate and rhythm. S1 and S2 heard. EXTREMITIES: Normal range of motion. No clubbing or cyanosis. Peripheral pulses intact. No lower extremity edema ASSESSMENT: Acute systolic heart failure Coronary artery disease with recent stenting to the LAD Ischemic cardiomyopathy, ejection fraction 40-45% Hypertension Hyperlipidemia Abnormal troponins, secondary to recent STEMI Elevated LFTs PLAN: Current current cardiac medications Patient is stable for discharge home today Patient to follow up outpatient with Dr. Aguilera We will sign off. Please reconsult if needed. Nurse practitioner note has been reviewed by physician. Signing provider agrees with the documented findings, assessment, and plan of care. Objective - Vital Signs Vital signs: Vital Signs Temp 97.7 F 03/15/21 08:00 Pulse 78 03/15/21 08:42 Resp 16 03/15/21 08:00 BP 106/70 03/15/21 08:00 Pulse Ox 97 03/15/21 08:00 Intake & Output 03/14/21 03/15/21 03/15/21 18:59 06:59 18:59 Intake Total 1480 180 Output Total 600 Balance 880 180 Weight 103.7 kg Intake: Oral 1480 180 Output: Urine 600 Other: Voiding Method Toilet Toilet # Voids 1 - Labs CBC & Chem 7: 03/15/21 07:22 03/15/21 07:22 Labs: Abnormal Lab Results - Last 24 Hours (Table) 03/15/21 Range/Units 07:22 BUN 30 H (9-20) mg/dL Glucose 132 H (74-99) mg/dL Microbiology - Last 24 Hours (Table) 03/12/21 22:08 Blood Culture - Preliminary Blood No Growth after 48 hours 03/12/21 22:08 Blood Culture - Preliminary Blood No Growth after 48 hours
[2021-03-15 11:47] LABS: Glucose,Whole Blood 117 mg/dL (75-99)
[2021-03-15] MEDS ORDERED: INSULIN ASPART (NovoLOG) 100 UNIT/ML VIAL SQ SCH (12:30)
--- NOTE | 2021-03-15 12:41 | P.PN ---
Subjective Progress Note Date: 03/14/21 Principal diagnosis: Acute CHF possible pneumonia This is a pleasant 55 years old male with past medical history of hypertension, coronary artery disease status post stent placement and hyperlipidemia Patient was just discharged 4 days ago for STEMI status post PCI to the mid LAD on 03/08 with ischemic cardiomyopathy ejection fraction 40-45% After discharge patient states that he was getting shortness of breath with little coughing and no chest pain, no fever. No abdominal or urinary complaints. No headache or weakness. Vitals are stable and patient is afebrile Has mild leukocytosis of 12.6k . Trace of CBC, INR, BMP are unremarkable. Liver enzymes are slightly elevated with AST 80 and ALT 61 Troponins are elevated 8.5, 6.5 and 6.2. ProBNP is 1880 Coronavirus is not detected. EKG showed normal sinus rhythm at [address]-T changes. Chest x-ray: Patchy bilateral pneumonia mostly new compared to last exam In the emergency room patient was started on ceftriaxone, Zithromax 03/14/2021 Patient is currently sitting in a chair comfortably. Breathing status is better today. IV Lasix has been changed to by mouth. Patient is on empiric antibiotics for possible pneumonia. Continue with Augmentin. Procardia 70 level is not elevated. Moderate lites and cardiology is on board. Current medications reviewed. Objective - Vital Signs Vital signs: Vital Signs Temp 98.5 F 03/14/21 17:37 Pulse 70 03/14/21 17:37 Resp 16 03/14/21 17:37 BP 134/82 03/14/21 17:37 Pulse Ox 96 03/14/21 17:37 Intake & Output 03/13/21 03/14/21 03/14/21 18:59 06:59 18:59 Intake Total 1480 Output Total 300 600 Balance -300 880 Weight 105 kg 103.7 kg Intake: Oral 1480 Output: Urine 300 600 Other: Voiding Method Toilet Toilet - Exam GENERAL: The patient is alert and oriented x3, not in any acute distress. Well developed, well nourished. HEENT: Pupils are round and equally reacting to light. EOMI. No scleral icterus. No conjunctival pallor. Normocephalic, atraumatic. No pharyngeal erythema. No thyromegaly. CARDIOVASCULAR: S1 and S2 present. No murmurs, rubs, or gallops. -PULMONARY: Chest is clear to auscultation, no wheezing no rhonchi or crackles. ABDOMEN: Soft, nontender, nondistended, normoactive bowel sounds. No palpable organomegaly. MUSCULOSKELETAL: No joint swelling or deformity. EXTREMITIES: No cyanosis, clubbing, or pedal edema. NEUROLOGICAL: Gross neurological examination did not reveal any focal deficits. SKIN: No rashes. No petechiae - Labs CBC & Chem 7: 03/15/21 07:22 03/15/21 07:22 Labs: Abnormal Lab Results - Last 24 Hours (Table) 03/14/21 Range/Units 07:28 BUN 26 H (9-20) mg/dL Glucose 128 H (74-99) mg/dL Microbiology - Last 24 Hours (Table) 03/12/21 22:08 Blood Culture - Preliminary Blood No Growth after 24 hours 03/12/21 22:08 Blood Culture - Preliminary Blood No Growth after 24 hours Assessment and Plan Assessment: Shortness of breath secondary to acute CHF with systolic dysfunction. Possible Bilateral hospital acquired pneumonia. covid test is negative Ischemic cardiomyopathy with ejection fraction 40-45% with systolic CHF Elevated troponin, patient is a status post STEMI and cardiac cath with LAD stent on 03/08 Hypertension Hyperlipidemia History of coronary artery disease status post stent DVT prophylaxis. Plan: This is a pleasant 55 years old male who presents with shortness of breath and high troponin likely due to lung congestion and CHF.. Continue with empiric antibiotic and started on Augmentin and follow-up of blood culture, sputum culture and procalcitonin. Pro-calcitonin level is not elevated. Patient is being followed by cardiology. Start Lasix IV 40 mg twice a day. Changed to by mouth today. And monitor creatinine and electrolytes 2. Repeat chest x-ray showed improved aeration. Labs and medication were reviewed. Monitor lytes and vitals. DVT and GI prophylaxis. Further recommendations depends on the clinical course of the patient DVT prophylaxis: Subcutaneous heparin GI Prophylaxis: Pepcid PT/OT: Pending Prognosis is guarded Time with Patient: Greater than 30
[2021-03-15 12:49] VITALS: BP 97/63; RESP 18
[2021-03-15 13:03] VITALS: PULSE 78
--- NOTE | 2021-03-15 18:51 | P.DS ---
Providers Date of admission: 03/12/21 21:30 Expected date of discharge: 03/15/21 Attending physician: Andrei Wellington Consults: Cardiology Primary care physician: Andrei Wellington Hospital Course: 55-year-old male with past medical history of hypertension, coronary artery disease status post STEMI status post PCI to the mid LAD on 03/08/2021 with subsequent ischemic cardiomyopathy ejection fraction of 40-45%, hyperlipidemia, prediabetes, and obesity was admitted to the hospital for progressive shortness of breath over a 24-hour period. Patient had extensive diagnostic workup in the emergency department revealing elevated white count of 12.6 with moderate elevation in neutrophils of 10.7 electrolytes within normal range, mild elevation in liver function AST 80,ALTs 61, and alkaline phosphatase 161. Troponins elevated at high 6.5. And elevation in BNP of 1880. Chest x-ray reveals patchy bilateral pneumonia. Consultation with cardiology was initiated patient was initiated on IV Lasix transitioned to oral Lasix with decreased shortness of breath for acute systolic heart failure with ejection fraction of 40-45%. Patient was initiated on IV antibiotics and transitioned to oral antibiotics for possible pneumonia. Second chest x-ray showed improvement in aeration. Repeat CBCs no white count noted, Pro calcitonin negative. Patient was speaking full sentences, with no noted shortness of breath with ambulation, no active chest pain or palpitations or any complaints upon discharge. Patient be discharged in stable condition with guarded prognosis due to multiple comorbidities. Patient to follow-up with primary care 1-2 days. Patient to follow-up with cardiology in 1 week. Assessment: Acute systolic heart failure with an ejection fraction of 40-45% Coronary artery disease with recent stenting to the LAD Ischemic cardiomyopathy with ejection fraction of 40-45% Hypertension Hyperlipidemia Prediabetes Abnormal troponins secondary to recent STEMI elevated LFTs Possible pneumonia, no white count noted, Pro calcitonin negative Final diagnosis Acute systolic heart failure with an ejection fraction of 40-45%, continue with cardiology's recommendation for cardiac medications Possible pneumonia, continue with outpatient oral antibiotics of Augmentin 875/125 by mouth twice a day Full code Health Concerns: Complexity of medical treatment plan Recent admission for STEMI with coronary stenting to the mid LAD Pertinent Studies: Serial chest x-rays, additional chest x-ray possible patchy bilateral pneumonia; second chest x-ray, interval improvement with lung aeration Echocardiogram; moderate concentration of left ventricle hypertrophy; overall left ventricle thallic function is mildly impaired with an ejection fraction of 45-50%; apical septum LV wall motion is hypokinetic Procedures: No procedures performed during hospital stay Patient Condition at Discharge: Fair Plan - Discharge Summary Discharge Rx Participant: No New Discharge Prescriptions: New Furosemide [Lasix] 40 mg PO DAILY #30 tab Amoxic-Pot Clav 875-125Mg [Augmentin 875-125] 1 each PO Q12HR 9 Days #18 tab Continue Prasugrel [Effient] 10 mg PO DAILY 30 Days #30 tab Aspirin 81 mg PO DAILY tab carvediloL [Coreg*] 12.5 mg PO BID-W/MEALS 30 Days #60 tab Losartan [Cozaar] 12.5 mg PO DAILY@1700 30 Days #30 tab Atorvastatin [Lipitor] 80 mg PO DAILY 30 Days #30 tab Spironolactone [Aldactone] 25 mg PO DAILY 30 Days #30 tab Nitroglycerin Sl Tabs [Nitrostat] 0.4 mg SUBLINGUAL Q5M PRN #25 tab PRN Reason: Chest Pain Discharge Medication List Prasugrel [Effient] 10 mg PO DAILY 30 Days #30 tab 03/09/21 [Rx] Aspirin 81 mg PO DAILY tab 03/10/21 [Rx] Atorvastatin [Lipitor] 80 mg PO DAILY 30 Days #30 tab 03/10/21 [Rx] Losartan [Cozaar] 12.5 mg PO DAILY@1700 30 Days #30 tab 03/10/21 [Rx] Nitroglycerin Sl Tabs [Nitrostat] 0.4 mg SUBLINGUAL Q5M PRN #25 tab 03/10/21 [Rx] Spironolactone [Aldactone] 25 mg PO DAILY 30 Days #30 tab 03/10/21 [Rx] carvediloL [Coreg*] 12.5 mg PO BID-W/MEALS 30 Days #60 tab 03/10/21 [Rx] Amoxic-Pot Clav 875-125Mg [Augmentin 875-125] 1 each PO Q12HR 9 Days #18 tab 03/15/21 [Rx] Furosemide [Lasix] 40 mg PO DAILY #30 tab 03/15/21 [Rx] Follow up Appointment(s)/Referral(s): Andrei Wellington MD [Primary Care Provider] - 03/21/21 1:30 pm Patient Instructions/Handouts: Pneumonitis (DC) Discharge Disposition: HOME SELF-CARE
== END 2021-03-15 16:00 | disposition home or self-care (01) | DRG 280 ==
LOC: EC 19:09 → 3SCARD 21:30
PROVIDERS: ADMIT Family Medicine; ATTEND Family Medicine
DX: I11.0 Hypertensive heart disease with heart failure (principal); I21.3 ST elevation (STEMI) myocardial infarction of unspecified site; J18.9 Pneumonia, unspecified organism; I50.23 Acute on chronic systolic (congestive) heart failure; Z87.891 Personal history of nicotine dependence; E66.9 Obesity, unspecified; Y95 Nosocomial condition; E78.5 Hyperlipidemia, unspecified; I25.10 Atherosclerotic heart disease of native coronary artery without angina pectoris; I25.5 Ischemic cardiomyopathy; R73.03 Prediabetes; Z20.822 Contact with and (suspected) exposure to COVID-19; Z68.31 Body mass index [BMI] 31.0-31.9, adult; Z79.02 Long term (current) use of antithrombotics/antiplatelets; Z79.82 Long term (current) use of aspirin; Z79.899 Other long term (current) drug therapy; Z80.3 Family history of malignant neoplasm of breast; Z82.49 Family history of ischemic heart disease and other diseases of the circulatory system; Z95.5 Presence of coronary angioplasty implant and graft
CPT/HCPCS: 36415; 71045; 71046; 80048; 80053; 83605; 83735; 83880; 84145; 84484; 85025; 85610; 85730; 87040; 87635; 93005; 93308; 94640; 94760; 96365; 96366; 96367; 96375; 99285

== ENCOUNTER → 2023-10-08 | Outpatient (CLI) | payer OTHER ==
--- NOTE | 2023-10-08 15:33 | XR ---
EXAMINATION TYPE: XR tibia fibula 2 views LT DATE OF EXAM: 10/08/2023 Comparison: None Clinical History: 58-year-old male S86.112A STRAIN MUSC/TEND POST GRP AT LOW LEG LEVE Findings: Mild subcutaneous soft tissue swelling is noted. Tibia and fibula show no acute fracture. There may b e a trace knee joint effusion. Extensor mechanism appears intact. Ankle articulation grossly intact. Impression: Mild generalized soft tissue swelling. No acute osseous abnormality seen.
== END | disposition home or self-care (01) ==
LOC: RADXRMAIN 15:09
PROVIDERS: ATTEND Emergency Medicine
DX: S86.112A Strain of other muscle(s) and tendon(s) of posterior muscle group at lower leg level, left leg, initial encounter (principal)